=== PATIENT | female | born 1960 | race Caucasian/White ===

== ENCOUNTER → 2021-12-05 | Outpatient (CLI) | payer BC, SELFPAY ==
--- NOTE | 2021-12-05 14:25 | VDLE_ITS ---
Reason For Study: RLE PAIN RIGHT GSV is normal. CFV is compressible, spontaneous, phasic, competent and demonstrates normal augmentation. FV is compressible, spontaneous, phasic, competent and demonstrates normal augmentation. POP V is compressible, spontaneous, phasic, competent and demonstrates normal augmentation. T/P Trunk is compressible. PTV is compressible. RT PerV is compressible. Procedure This is a venous duplex using B-mode, color flow and spectral Doppler. Exam performed in department. The exam was diagnostic. A preliminary report was called and/or faxed to Dr. López @ [phone] @ 2:45 pm. VL/Venous Duplex US, Unilateral Interpretation Summary Deep veins of the right lower extremity are patent and compressible segmentally . There is no evidence of right lower extremity deep vein thrombosis. Valvular competence rosanne ears intact within the proximal deep venous system on the right . The right great saphenous vein a ppears patent and compressible segmentally. Ordering Physician: Shy Ernst Referring Physician: Bret López Performed By: Lizz Medina, CASSIE, RVT
== END | disposition home or self-care (01) ==
LOC: CVS 14:23
PROVIDERS: PCP Family Medicine; Referring Provider Nurse Practitioner Family; Visit Provider Nurse Practitioner Family
DX: M79.604 Pain in right leg (principal)
CPT/HCPCS: 93971

== ENCOUNTER 2024-02-06 16:27 | Emergency (ER) | payer SELFPAY ==
[2024-02-06 16:28] VITALS: BP 166/91; PULSE 91; RESP 18; TEMP 37; O2SAT 100; BMI 33.0
--- NOTE | 2024-02-06 16:50 | RAD_ITS ---
STUDY: X-RAY CHEST REASON FOR EXAM: Female, 63 years old. cough TECHNIQUE: Single frontal view of the chest. COMPARISON: None. FINDINGS: Lungs are hyperaerated. The lungs are clear and expanded. There is no demonstrated pleural abnormality. Normal size heart. Normal mediastinum and raad. Normal visualized pulmonary arteries. Normal visualized aortic arch and descending thoracic aorta. Normal visualized thoracic spine. Normal visualized ribs, clavicles, and shoulders. There is no demonstrated abnormality of the visualized soft tissue structures of the upper abdomen. RAD/Chest PA and Lateral IMPRESSION: COPD Electronically Signed: Lucas Streeter MD at 17:15 EDT ,
--- NOTE | 2024-02-06 16:53 | EDS_ITS ---
HPI History of Present Illness Chief Complaint: Cough Narrative Narrative: Chief complaint and HPI: Cough. 63-year-old female presents for evaluation of cough, sinus congestion, sore throat for the past week and a half. Patient is a tobacco abuser. No history of asthma or COPD. Patient denies any fever, chills, abdominal pain, nausea, vomiting, diarrhea. Patient states she has had little sleep secondary to her cough. Review of systems: See HPI Medications: As listed on the chart Allergies: As listed on the chart PFSH: Per chart Vital signs: As listed on the chart. Reviewed. Physical exam: Gen: A&O x3, NAD Head: Normocephalic, atraumatic Eyes: No sclera icterus, conjunctiva clear, PERRL, EOMI ENT: TMs clear BL, moist mucous membranes, posterior oropharynx unremarkable, uvula midline, tonsils not enlarged, no tonsillar exudates, sinus tenderness to palpation Neck: Trachea midline, No JVD, Full ROM, No meningismus CV: RRR, no murmurs, no peripheral edema Resp: Lungs CTA BL, no w/r/c GI: Abd soft, non-distended, non-tender, no r/r/g Musc: Full ROM, no deformity Skin: Warm, dry, no rash Neuro: Alert, oriented, grossly intact, sensation intact Psych: Cooperative, appropriate mood and affect [facility] Medical History (Updated 02/06/24 @ 17:[address] Ilia Ladd, DO) Hyperlipemia HTN (hypertension) Diabetes type 2, controlled Home Medications ?Medication ?Instructions ?Recorded ?Last Taken ?Type amoxicillin 875 mg-potassium 1 tab PO Q12H 10 days #20 tabs 02/06/24 Unknown Rx clavulanate 125 mg tablet Allergy/AdvReac Type Severity Reaction Status Date / Time acetaminophen (From Percocet) AdvReac Vomiting Verified 02/06/24 16:28 oxycodone (From Percocet) AdvReac Vomiting Verified 02/06/24 16:28 Penicillins AdvReac Other Verified 02/06/24 16:28 Social History Smoking Status: Current every day smoker tobacco type: cigarettes EXAM Physical Exam Const Vital Signs: 02/06/24 16:28 02/06/24 17:06 Temperature 98.6 F Temperature Source Oral Pulse Rate 91 Respiratory Rate 18 Respiratory Effort Normal Non-Labored Respiratory Depth Normal Blood Pressure 166/91 H Blood Pressure Mean 116 Pulse Ox 100 Oxygen Delivery Method Room Air MDM MDM MDM Narrative Medical decision making narrative: 63-year-old female presents for evaluation of cough, sinus congestion, sore throat. Symptoms have been ongoing for a week and a half. Differential diagnosis includes but is not limited to sinusitis, pneumonia, bronchitis. Given patient's physical exam, I suspect sinusitis. However given symptoms have been ongoing for a week and a half we will get chest x-ray to rule out pneumonia. Chest x-ray negative for pneumonia. Patient's symptoms are likely secondary to acute sinusitis. Patient will placed on a 10-day course of Augmentin. She was told to follow-up with her PCP. Return precautions explained. She confirmed understand of the plan. Diagnostic: Interpreted by me/EM physician: Chest x-ray without pneumonia, effusion, cardiomegaly, pneumothorax Impression: 1. Acute sinusitis 2. Cough Radiography Diagnostic Testing: Clinical Impression(s) from Imaging Studies Chest X-Ray 02/06/24 16:50 IMPRESSION: COPD Electronically Signed: Lucas Streeter MD at 17:15 EDT Reading Location ID and State: [facility] / [place] Tel , Service support , Discharge Plan Triage Chief Complaint: Cough ED Provider: Ilia Ladd Dx/Rx/DC Orders Clinical Impression: Sinusitis, acute Instructions: Causes of Sinusitis, ED Sinusitis (Antibiotic Treatment) Prescriptions: New amoxicillin-pot clavulanate 875-125 mg tablet 1 tab PO Q12H 10 Days Qty: 20 0RF Primary Care Provider: Bret López Referrals: Bret López MD [Primary Care Provider] - 3-5 Days Print Language: Chilean Disposition Disposition: Home, Self Care
[2024-02-06 18:06] VITALS: BP 124/77; PULSE 74; RESP 18; TEMP 37; O2SAT 100
== END 2024-02-06 18:07 | disposition home or self-care (01) ==
PROVIDERS: Emergency Provider Surgery; PCP Family Medicine; Visit Provider Surgery
DX: J01.90 Acute sinusitis, unspecified (principal); E11.9 Type 2 diabetes mellitus without complications; J02.9 Acute pharyngitis, unspecified; I10 Essential (primary) hypertension; E78.5 Hyperlipidemia, unspecified; F17.210 Nicotine dependence, cigarettes, uncomplicated
CPT/HCPCS: 71046; 99282

== ENCOUNTER 2024-03-30 15:22 | Emergency (ER) | payer SELFPAY ==
[2024-03-30 15:24] VITALS: BP 169/74; PULSE 88; RESP 16; TEMP 36.3; O2SAT 97; BMI 33.8
--- NOTE | 2024-03-30 15:32 | EX.ED.UPPERE ---
HPI History of Present Illness Chief Complaint: Upper Extremity Injury [facility] Medical History (Updated 03/30/24 @ 15:[address] Terell Padilla, DO) Hyperlipemia HTN (hypertension) Diabetes type 2, controlled Home Medications ?Medication ?Instructions ?Recorded ?Last Taken ?Type amoxicillin 875 mg-potassium 1 tab PO Q12H 10 days #20 tabs 02/06/24 Unknown Rx clavulanate 125 mg tablet fluconazole 150 mg tablet 150 mg PO DAILY 2 days #2 tabs 03/30/24 Unknown Rx sulfamethoxazole 800 1 tab PO BID 7 days #14 tabs 03/30/24 Unknown Rx mg-trimethoprim 160 mg tablet (Bactrim DS) Allergy/AdvReac Type Severity Reaction Status Date / Time acetaminophen (From Percocet) AdvReac Vomiting Verified 02/06/24 16:28 oxycodone (From Percocet) AdvReac Vomiting Verified 02/06/24 16:28 Penicillins AdvReac Other Verified 02/06/24 16:28 Social History Smoking Status: Current every day smoker tobacco type: cigarettes EXAM Physical Exam Const Vital Signs: 03/30/24 15:24 Temperature 97.3 F L Temperature Source Temporal Pulse Rate 88 Respiratory Rate 16 Blood Pressure 169/74 H Blood Pressure Mean 105 Pulse Ox 97 MDM [facility] Narrative Medical decision making narrative: HISTORY OF PRESENT ILLNESS: 63-year-old female [id number] presents with right middle finger pain. States finger is bruised. She denies any injury. She further states has been ongoing for last few days. States he tried to poke with a needle to drain it. States he has diabetes with concerns for. Denies any difficulty with extending the finger. The fingers are held in flexion. REVIEW OF SYSTEMS: Pertinent positives: Finger pain Pertinent negatives: Vomiting, fever PHYSICAL EXAM: Nursing triage notes reviewed, Vital signs reviewed Constitutional: please see mdm Extremities: No edema, right third digit neutral, no pain over flexor tendon sheath, no pain with passive extension, swelling and redness noted on the medial nail fold just adjacent to the nailbed, finger has warmth. Neuro: Intact 5/5 strength with ok sign (median), intact finger abduction (ulnar) intact wrist extension (radial n). Intact sensation in the radial, ulnar, and median nerve distributions. Skin: Erythema noted to dista third digit of the right hand MEDICAL DECISION MAKING: Chief Complaint: Finger pain External records reviewed: No recent ED visits Factors affecting care: none Social determinants of health: none History obtained from others: none Consults: none MDM Narrative: The patient was hemodynamically stable, afebrile and nontoxic-appearing. Exam consistent with paronychia. I considered the following differential diagnosis: Finger fracture, dislocation, paronychia, felon, flexor tenosynovitis there is no clinical exam evidence to suggest. There is no trauma to suggest fracture or dislocation. I&D performed with assistance of a digital block with a small amount of mostly bloody drainage. No real purulence noted. Area was cleansed. Oral antibiotics given. Strict return precautions were discussed. Procedure: Incision and Drainage The procedure was performed by myself. Location: Right third digit Risks and benefits: Risks, benefits, and alternatives were discussed. Questions were sought and answered, and verbal consent provided for the procedure. Anesthesia: Digital block with 1% lidocaine without epinephrine Procedure Description: I placed the bevel of an 18-gauge needle into the nailfold with return of mostly bloody discharge approximately 2 cc. Held pressure and bleeding stopped. The patient tolerated the procedure well without complications. The patient and/or family, caregivers express understanding. The patient and/or family, caregivers agrees with the plan. Shared decision making: I will have a discussion with the patient and or visitors regarding risk/benefits of further testing or admission. They will be made aware of of the risk/benefits inherent in this decision they will be given the opportunity to voice understanding. Total critical care time today provided was at least 0 minutes. This excludes separately billable procedures. Critical care time (if documented) is secondary to the patient having high probability of clinically significant/life threatening deterioration in the patient's condition which required my urgent intervention. Impression: 1. Paronychia 2. History of type II diabetes Dispo: Discharge This note was generated with [employer] dictation software. It may contain incorrect words, spelling, and punctuation that were not noted in review of the chart prior to signing. Discharge Plan Triage Chief Complaint: Upper Extremity Injury ED Provider: Terell Padilla Dx/Rx/DC Orders Clinical Impression: Paronychia of finger Instructions: ED Paronychia of the Finger or Toe Prescriptions: New sulfamethoxazole-trimethoprim [Bactrim DS] 800-160 mg tablet 1 tab PO BID 7 Days Qty: 14 0RF fluconazole 150 mg tablet 150 mg PO DAILY 2 Days Qty: 2 0RF No Action amoxicillin-pot clavulanate 875-125 mg tablet 1 tab PO Q12H 10 Days Qty: 20 0RF Primary Care Provider: Bret López Referrals: Bret López MD [Primary Care Provider] - Activity Restrictions/Additional Instructions: Thank you for trusting us with your care today! Your clinical exam is most consistent with paronychia. This is an infection next your nailbed. It is treated with antibiotics and incision and drainage. Please take antibiotics until course complete. Please take Tylenol (2 pills, 650 mg), ibuprofen (2 pills, 400 mg) every 6 hours as needed for pain and fever control. Please return to the emergency department if your symptoms change or worsen. Specifically develop vomiting, increasing pain, swelling, if you notice your finger is in a flexed position and is painful to extend your finger completely. Please follow with your primary care physician for further outpatient evaluation and management. Print Language: Setswana Disposition Disposition: Home, Self Care Discharge Date/Time: 03/30/24 16:12
[2024-03-30] MEDS: Smz/Tmp Ds Tablet 1 TABLET PO (15:46)
[2024-03-30] MEDS: Lidocaine 1% (20 ml mdv) 20 ML Vial 5 ML INFILT (15:47)
[2024-03-30 16:11] VITALS: BP 169/74; PULSE 88; RESP 16; TEMP 36.3; O2SAT 97
== END 2024-03-30 16:12 | disposition home or self-care (01) ==
LOC: ED 15:54
PROVIDERS: Emergency Provider Emergency Medicine; PCP Family Medicine; Visit Provider Emergency Medicine
DX: L03.011 Cellulitis of right finger (principal); E11.9 Type 2 diabetes mellitus without complications; Z79.4 Long term (current) use of insulin; I10 Essential (primary) hypertension; E78.5 Hyperlipidemia, unspecified; F17.210 Nicotine dependence, cigarettes, uncomplicated; Z79.899 Other long term (current) drug therapy
CPT/HCPCS: 10060; 99282

== ENCOUNTER 2024-04-04 12:11 | Inpatient (IN) | payer SELFPAY ==
[2024-04-04] VITALS (14 sets, daily range): BP systolic 88–139; BP diastolic 54–80; PULSE 83–118; RESP 16–23; TEMP 37–39.2; O2SAT 93–100; BMI 33.9; BMI 34.6
--- NOTE | 2024-04-04 12:22 | ED.RN ---
PT'S FAMILY AT BEDSIDE AND DESCRIBES PT HAS HAD A COUPLE FALLS AT HOME FOLLOWING AN INFECTION BEING TREATED WITH ORAL ANTIBIOTICS RIGHT NOW. PT IS A&OX4 WITH AN ELEVATED TEMP ORAL 101.8
--- NOTE | 2024-04-04 12:24 | EKG12_ITS ---
Test Reason : Blood Pressure : */* mmHG Vent. Rate : 108 BPM Atrial Rate : 108 BPM P-R Int : 164 ms QRS Dur : 92 ms QT Int : 308 ms P-R-T Axes : 63 -57 64 degrees QTcB Int : 412 ms Sinus tachycardia Left axis deviation Pulmonary disease pattern Abnormal ECG Confirmed by CHEN CASTELLANOS, CATIE ([id number]), pictures editor MARY SHEPARD ([id number]) on 04/09/2024 1:32:17 P M Referred By: Confirmed By: CATIE SIDDIQUI MD
--- NOTE | 2024-04-04 12:28 | EDS_ITS ---
HPI <TARYN Hedrick - Last Filed: 04/04/24 15:51> History of Present Illness Chief Complaint: Confusion Narrative Narrative: Patient is a 63-year-old female with history of hypertension hyperlipidemia, diabetes who presents to the emergency department fever, chills, worsening infection to her right middle finger. Patient was seen here on March 30, 2024, diagnosed with paronychia. Per the patient's daughter who she lives with, the patient was not acting herself today, the patient was weak, having multiple falls, 1 having been in the shower. Denies any head or neck injury. The patient then states that she knew she needed to drive to the ER however she was dizzy and the daughter stopped her and drove her here. Patient does have a fever here, she is tachycardic. Patient dates she does have a cough, as well as worsening pain to her right middle finger. She is currently on Bactrim however is unclear when she specifically started it. How she did not started on the eighth. PFS <TARYN Hedrick - Last Filed: 04/04/24 15:51> [facility] Medical History (Updated 04/04/24 @ 16:[address] Bartolo Pearl MD) Hyperlipemia HTN (hypertension) Diabetes type 2, controlled Home Medications ?Medication ?Instructions ?Recorded ?Last Taken ?Type sulfamethoxazole 800 1 tab PO BID 7 days #14 tabs 03/30/24 Unknown Rx mg-trimethoprim 160 mg tablet (Bactrim DS) amitriptyline 10 mg tablet 10 mg PO QHS 04/04/24 Unknown History gabapentin 600 mg tablet 600 mg PO 4X/DAY 04/04/24 Unknown History metformin 500 mg tablet 1,000 mg PO BID 04/04/24 Unknown History rosuvastatin 20 mg tablet 20 mg PO QHS 04/04/24 Unknown History Allergy/AdvReac Type Severity Reaction Status Date / Time acetaminophen (From Percocet) AdvReac Vomiting Verified 04/04/24 12:24 oxycodone (From Percocet) AdvReac Vomiting Verified 04/04/24 12:24 Penicillins AdvReac Other Verified 04/04/24 12:24 Social History Smoking Status: Current every day smoker tobacco type: cigarettes ROS <TARYN Hedrick - Last Filed: 04/04/24 15:51> ROS ED ROS Narrative Constitutional: Negative for weight loss, weakness. Positive fever and chills Eyes: Negative for vision loss, vision change, double vision ENT: Negative for any sore throat, ear pain, congestion Cardiovascular: Negative for any chest pain, tightness, palpitations Respiratory: Negative for any sputum production, hemoptysis, dyspnea, dyspnea on exertion, orthopnea. Positive for cough Gastrointestinal: Negative for any abdominal pain, nausea, vomiting, diarrhea, constipation, blood in stool, blood in vomit : Negative for any urinary frequency, dysuria, retention, blood in urine Muscle skeletal: Negative for any neck pain, back pain. Positive pain to the right middle finger Neurological: Negative for any headache, syncope, dizziness Skin: Negative for any rashes, itching, abrasions, lacerations. Positive for infection to the right middle finger Psychiatric: Negative for any depression, anxiety, stress, suicidal ideation, homicidal ideation Hematologic: Negative for any excessive bruising, easy bleeding EXAM <TARYN Hedrick - Last Filed: 04/04/24 15:51> Physical Exam Narrative Exam Narrative: Vital signs reviewed. Patient is tachycardic, fever 101.9. HEET: Head normocephalic atraumatic, TMs clear bilaterally. Posterior pharynx is clear, moist mucous membranes. Nares clear bilaterally. Neck: Supple with no lymphadenopathy or tenderness. No signs of meningismus. Cardiac: Regular rate and rhythm no murmurs gallops or rubs, equal peripheral pulses bilaterally. Respiratory: Patient has slight expiratory wheezes, diminished lung sounds of both lower lobes. No chest tenderness. Abdomen: Soft, nontender, nondistended. No abdominal bruit or pulsatile masses. No hepatosplenomegaly Extremities: Patient does have some erythema, abscess formation the distal tip of the right middle finger. This is consistent with worsening paronychia full range of motion. Active full range of motion of all extremities. Neuro: Cranial nerves II through XII intact, no focal neurological deficits. Skin: Clean dry and intact with no rash, purpura, petechiae, vesicles or pustules. Backs/flank: No CVA tenderness, no midline spinal tenderness, no deformity. Psych: Normal mood and affect. No SI, HI or acute psychosis. Const Vital Signs: 04/04/24 12:11 04/04/24 12:15 04/04/24 12:24 Temperature 101.9 F H 101.9 F H Temperature Source Oral Oral Pulse Rate 118 H 118 H Respiratory Rate 18 18 Blood Pressure 139/80 H 139/80 H Blood Pressure Mean 99 99 Pulse Ox 99 99 100 Oxygen Delivery Method Room Air Room Air Room Air 04/04/24 13:15 04/04/24 13:55 04/04/24 14:00 Temperature 101.9 F H 102.5 F H 102.5 F H Temperature Source Oral Oral Oral Pulse Rate 99 95 Respiratory Rate 17 23 H Blood Pressure 121/54 H 102/56 L Blood Pressure Mean 76 71 Pulse Ox 93 96 Oxygen Delivery Method Room Air Room Air 04/04/24 15:00 04/04/24 15:53 Temperature 99 F Temperature Source Oral Pulse Rate 86 83 Respiratory Rate 19 H 17 Blood Pressure 88/54 L 109/60 Blood Pressure Mean 65 76 Pulse Ox 97 97 Oxygen Delivery Method Room Air Room Air Positive well nourished and well developed General Appearance ED: well developed <Dr. Bartolo Pearl MD - Last Filed: 04/04/24 22:13> Physical Exam Const Vital Signs: 04/04/24 12:11 04/04/24 12:15 04/04/24 12:24 Temperature 101.9 F H 101.9 F H Temperature Source Oral Oral Pulse Rate 118 H 118 H Respiratory Rate 18 18 Blood Pressure 139/80 H 139/80 H Blood Pressure Mean 99 99 Pulse Ox 99 99 100 Oxygen Delivery Method Room Air Room Air Room Air 04/04/24 13:15 04/04/24 13:55 04/04/24 14:00 Temperature 101.9 F H 102.5 F H 102.5 F H Temperature Source Oral Oral Oral Pulse Rate 99 95 Respiratory Rate 17 23 H Blood Pressure 121/54 H 102/56 L Blood Pressure Mean 76 71 Pulse Ox 93 96 Oxygen Delivery Method Room Air Room Air 04/04/24 15:00 04/04/24 15:53 Temperature 99 F Temperature Source Oral Pulse Rate 86 83 Respiratory Rate 19 H 17 Blood Pressure 88/54 L 109/60 Blood Pressure Mean 65 76 Pulse Ox 97 97 Oxygen Delivery Method Room Air Room Air Sepsis Attestation <Dr. Bartolo Pearl MD - Last Filed: 04/04/24 22:13> Sepsis Alert: Yes Sepsis Attestation: Agree w/Sepsis Date exam was performed: 04/04/24 Time exam was performed: 15:15 Possible Source of Sepsis: Pulmonary and Skin/soft tissue Sepsis Organ Dysfunction Criteria Present: SBP < 90 mmHg or MAP < 65 mmHg, SBP decrease of more than 40 mmHg, Lactic Acid > 2 mmol/L and New/Unexplained change in mental status Fluid Resuscitation Fluid resuscitation indicated?: Yes Fluid Resuscitation ordered: Lesser volume fluid bolus ordered Amount of fluid ordered: 2,000 Reason for lesser fluid bolus:: BP Responded to a lesser volume Sepsis Note Date exam was performed: 04/04/24 Time exam was performed: 15:55 Sepsis Attestation: Sepsis re-evaluation was performed Response to fluids: Fluid responsive hypotension MDM <TARYN Hedrick - Last Filed: 04/04/24 15:51> [place] Lab Data Labs: Laboratory Results - last 24 hr 04/04/24 04/04/24 04/04/24 12:43 13:30 13:50 WBC 4.2 L RBC 5.04 Hgb 14.8 Hct 43.2 MCV 85.7 MCH 29.4 MCHC 34.3 RDW Std Deviation 39.7 RDW Coeff of Kristi 12.8 Plt Count 160 MPV 11.1 Immature Gran % (Auto) 2.100 H Neut % (Auto) 72.8 H Lymph % (Auto) 12.8 L [place] % (Auto) 10.9 H Eos % (Auto) 0.5 Baso % (Auto) 0.9 Absolute Neuts (auto) 3.1 Absolute Lymphs (auto) 0.54 L Nucleated RBC % 0 ESR 10 PT Cancelled 13.2 INR Cancelled 1.0 APTT Cancelled 26.4 Sodium 129 L Potassium 5.2 H Chloride 99 Carbon Dioxide 22.0 Anion Gap 8 BUN 18 Creatinine 1.37 H Estim Creat Clear Calc 47.87 Est GFR (MDRD) Af Amer 50 L Est GFR (MDRD) Non-Af 42 L BUN/Creatinine Ratio 13.1 Glucose 446 H Lactic Acid 2.4 H* Calcium 9.6 Total Bilirubin 0.40 AST 16 ALT 28 Alkaline Phosphatase 144 H C-React Prot Ext Range 12.90 H Total Protein 7.4 Albumin 3.9 Globulin 3.5 Albumin/Globulin Ratio 1.1 Urine Color Yellow Urine Clarity Sl. Cloudy Urine pH 5.0 Ur Specific [place] 1.015 Urine Protein 30 H Urine Glucose (UA) 1000 H Urine Ketones Negative Urine Occult Blood 25 H Urine Nitrite Negative Urine Bilirubin Negative Urine Urobilinogen Normal Ur Leukocyte Esterase Negative Urine RBC 0-5 SEEN Urine WBC 0 SEEN Ur Squamous Epith Cells 0-5 SEEN Urine Bacteria 0 SEEN Urine Mucus 0 SEEN Radiography Diagnostic Testing: Clinical Impression(s) from Imaging Studies Chest X-Ray 04/04/24 12:55 IMPRESSION: Hyperinflation. The lungs are clear. Electronically Signed: Fox Blank MD at 13:09 EST , Finger X-Ray 04/04/24 12:55 IMPRESSION: Diffuse soft tissue swelling. Electronically Signed: Fox Blank MD at 13:08 EST , Treatment and Re-Evaluation :: Differential diagnosis includes however is not limited to: Osteomyelitis, septicemia, failure outpatient therapy right middle finger paronychia, community-acquired pneumonia, COVID-19 influenza RSV, other viral-like illness. Patient does have tachycardia, fever here, patient will receive a septic workup. Presenting to the emergency department for complaints of fever, chills, altered mental status, weakness and falls over the last 24 hours. Patient will receive x-rays of the right middle finger, chest x-ray. Patient will receive IV fluids, Tylenol, blood cultures x 2. All radiologic examinations were read, reviewed by the emergency department attending. From these reads, a plan of care will be put in place. Patient's laboratory values shows a leukopenia with a white blood cell count 4.2, PT/INR within normal limits. Patient's sodium 129 with potassium 5.2, slightly elevated. Creatinine 1.37, glucose 4-46 with a lactic acid 2.4. Alkaline phosphatase 144 C-reactive protein slightly elevated 12.9. Sed rate was negative. Patient's chest x-ray was negative for any acute process. Urinalysis showed no infection. Patient was positive for COVID-19, does explain multiple symptoms. Patient be given 2 L normal saline. Patient did respond well to Tylenol and ibuprofen. Patient is currently getting the second liter of fluid, I did repeat the patient's blood pressure was 90/54. Patient is mentating well. She will continue to get the IV fluids, we will reevaluate after the second liter. After the second liter, the patient did have some improvement in her blood pressure which is now 109/54. Secondary the patient's hypotension, COVID-19, paronychia, metabolic cephalopathy, dehydration, I do believe patient would benefit from admission. I spoke with admitting physician. Patient admitted to observation on [facility]. Patient is agreeable with this plan. All questions answered, patient stable for discharge. <Dr. Bartolo Pearl MD - Last Filed: 04/04/24 22:13> MDM MDM Narrative Medical decision making narrative: I have personally performed a face to face assessment of the patient and have reviewed the MERLINE Note. I performed a substantive portion of the visit including all aspects of the following. My vidales findings include: History is recent paronychia spontaneously according to patient, seen last week. Started antibiotics 3 days ago. This morning, family disoriented and fever up to 103. She has had a cough recently. She does have chronic cough it is a little worse she denies dyspnea. Contact with walking pneumonia and COVID in her building. Exam is no acute distress. Able to follow commands. A little confused only detectable with conversation but oriented x 3. Right long finger mildly tender paronychia that is open, small amount of purulence is expressible from the nail fold which was sterilized and then expressed freshly for culture. Normal nonfocal peripheral neurologic exam. Lungs clear. Occasional cough. No distress. Abdomen soft nontender nondistended no other wounds or signs of cellulitis going up the finger. Medical Decison Making septic workup and possible admission. This paronychia does not appear to be that bad and unlikely causing her high fevers and disorientation/encephalopathy. The transient hypotension therefore more likely related to dehydration rather than her COVID infection and paronychia. 1 view chest x-ray on my interpretation is normal, 3 view finger x-ray on my interpretation shows no acute bony abnormality. Other additions or changes: [None] Lab Data Labs: Laboratory Results - last 24 hr 04/04/24 04/04/24 04/04/24 12:43 13:30 13:50 WBC 4.2 L RBC 5.04 Hgb 14.8 Hct 43.2 MCV 85.7 MCH 29.4 MCHC 34.3 RDW Std Deviation 39.7 RDW Coeff of Kristi 12.8 Plt Count 160 MPV 11.1 Immature Gran % (Auto) 2.100 H Neut % (Auto) 72.8 H Lymph % (Auto) 12.8 L [place] % (Auto) 10.9 H Eos % (Auto) 0.5 Baso % (Auto) 0.9 Absolute Neuts (auto) 3.1 Absolute Lymphs (auto) 0.54 L Nucleated RBC % 0 ESR 10 PT Cancelled 13.2 INR Cancelled 1.0 APTT Cancelled 26.4 Sodium 129 L Potassium 5.2 H Chloride 99 Carbon Dioxide 22.0 Anion Gap 8 BUN 18 Creatinine 1.37 H Estim Creat Clear Calc 47.87 Est GFR (MDRD) Af Amer 50 L Est GFR (MDRD) Non-Af 42 L BUN/Creatinine Ratio 13.1 Glucose 446 H Lactic Acid 2.4 H* Calcium 9.6 Total Bilirubin 0.40 AST 16 ALT 28 Alkaline Phosphatase 144 H C-React Prot Ext Range 12.90 H Total Protein 7.4 Albumin 3.9 Globulin 3.5 Albumin/Globulin Ratio 1.1 Urine Color Yellow Urine Clarity Sl. Cloudy Urine pH 5.0 Ur Specific [place] 1.015 Urine Protein 30 H Urine Glucose (UA) 1000 H Urine Ketones Negative Urine Occult Blood 25 H Urine Nitrite Negative Urine Bilirubin Negative Urine Urobilinogen Normal Ur Leukocyte Esterase Negative Urine RBC 0-5 SEEN Urine WBC 0 SEEN Ur Squamous Epith Cells 0-5 SEEN Urine Bacteria 0 SEEN Urine Mucus 0 SEEN Radiography Diagnostic Testing: Clinical Impression(s) from Imaging Studies Chest X-Ray 04/04/24 12:55 IMPRESSION: Hyperinflation. The lungs are clear. Electronically Signed: Fox Blank MD at 13:09 EST , Finger X-Ray 04/04/24 12:55 IMPRESSION: Diffuse soft tissue swelling. Electronically Signed: Fox Blank MD at 13:08 EST , Rhythm Strip Rhythm Strip: Sinus Tach Rate: 108 Ectopy: None EKG Initial EKG: Attestation: I personally reviewed and interpreted this EKG as follows: Interpretation: No Acute Injury Pattern, Sinus Tachycardia and LAFB Comments: Narrow QRS. Normal QTc. No AV block. Management Discussion w/another healthcare provider: Hospitalist <Dr. Bartolo Pearl MD - Last Filed: 04/04/24 22:13> Critical Care Time Critical Care Time: Yes Critical care time (excluding procedures): 30-74 minutes (33 min), Including time spent:, Discussing w/Patient &/or Family/Mortar Maker, Discussing w/Consultants, Arranging Admission or Transfer and Performing Direct Patient Care at Bedside Discharge Plan Dx/Rx/DC Orders Clinical Impression: Acute metabolic encephalopathy, Paronychia of finger, COVID-19, Weakness, Acute dehydration, Transient hypotension Disposition Disposition: [facility] Care [facility] Discharge Date/Time: 04/04/24 18:34
[2024-04-04] MEDS: Ondansetron 4 MG/2 ML Vial IV (12:45)
[2024-04-04] MEDS: Acetaminophen 500 MG Tablet 1000 MG PO (12:45)
[2024-04-04] MEDS: 0.9% Normal Saline (1000mL) 1,000 ML 999 ML IV ×3 (12:45→16:20)
--- NOTE | 2024-04-04 12:55 | RAD_ITS ---
STUDY: X-RAY CHEST REASON FOR EXAM: Female, 63 years old. Cough TECHNIQUE: Single AP portable view of the chest. COMPARISON: Comparison is made with prior chest radiograph dated February 06, 2024. FINDINGS: EKG electrodes are seen. Hyperinflation. The lungs are clear. There is no demonstrated pleural abnormality. Normal size heart. Normal mediastinum and raad. Normal visualized pulmonary arteries. There is atherosclerotic calcification of the aortic arch with tortuosity. There are diffuse degenerative changes of the visualized thoracic spine. Normal visualized ribs, clavicles, and shoulders. There is no demonstrated abnormality of the visualized soft tissue structures of the upper abdomen. RAD/Chest 1 View (Portable) IMPRESSION: Hyperinflation. The lungs are clear. Electronically Signed: Fox Blank MD at 13:09 EST ,
--- NOTE | 2024-04-04 12:55 | RAD_ITS ---
STUDY: X-RAY - RIGHT HAND, ATTENTION THIRD FINGER REASON FOR EXAM: Female, 63 years old. Finger infection 3rd digit TECHNIQUE: 3 view(s) of the finger were obtained. COMPARISON: None. FINDINGS: Normal metacarpal head. Normal metacarpophalangeal joint. Normal proximal phalanx. Normal middle phalanx. Normal distal phalanx. Normal proximal interphalangeal joint. Normal distal interphalangeal joint. Diffuse soft tissue swelling. RAD/Finger(s) Min 2 Views IMPRESSION: Diffuse soft tissue swelling. Electronically Signed: Fox Blank MD at 13:08 EST ,
[2024-04-04 13:25] LABS: ALB/GLOB Ratio 1.1 RATIO (0.9-2.4); AST(SGOT) 16 U/L (15-37); Alanine Aminotransfer ALT/SGPT 28 U/L (13-56); Albumin, Serum 3.9 g/dL (3.2-5.0); Alkaline Phosphatase 144 U/L (45-117); Anion Gap 8 (5-15); BUN 18 mg/dL (7-18); BUN/Creat Ratio 13.1 RATIO (10-20); Calcium,Total 9.6 mg/dL (8.5-10.1); Chloride 99 mmol/L (98-107); Creatinine, Serum 1.37 mg/dL (0.55-1.02); EST Glomerular Filtration Rate 42 mL/min (>60); Est Glom Filt Rate - Afr Amer 50 mL/min (>60); Estimated Creatinine Clearance 47.87 ml/min; Globulin 3.5 g/dL (2.2-4.2); Glucose 446 mg/dL (74-106); Potassium 5.2 mmol/L (3.5-5.1); Protein, Total 7.4 g/dL (6.4-8.2); Sodium Level 129 mmol/L (136-145)
[2024-04-04 13:36] LABS: Erythrocyte Sedimentation Rate 10 mm/hr (0-30)
[2024-04-04 13:39] LABS: Lactic Acid 2.4 mmol/L (0.4-1.9)
[2024-04-04 13:40] LABS: Absolute Lymphocyte Count 0.54 X10^3/uL (0.83-4.51); Absolute Neutrophil Count 3.1 X10^3/uL (2.0-7.7); Basophil# 0.04 X10^3/uL; Basophil% 0.9 % (0-1); Eosinophil# 0.02 X10^3/uL; Eosinophils% 0.5 % (0-5); Hematocrit 43.2 % (37-47); Hemoglobin 14.8 g/dL (12.0-15.0); Lymphocyte # 0.54 X10^3/ul (0.83-4.51); Lymphocyte % 12.8 % (19-41); Mean Corp Hgb Conc 34.3 g/dL (32-36); Mean Corpuscular Hgb 29.4 pg (27.0-32.0); Mean Corpuscular Volume 85.7 fL (81-99); Mean Platelet Vol. 11.1 fl (6.2-12.0); Monocyte# 0.46 X10^3/uL; Monocyte% 10.9 % (0-10); NRBC Flagged by Analyzer 0 % (0-5); Neutrophil # 3.08 X10^3/uL (2.7-7.7); Neutrophil % 72.8 % (47-70); POSITIVE DIFFERENTIAL YES; Platelet Count 160 K/mm3 (150-450); RBC Distribution Width CV 12.8 % (11.6-14.6); RBC Distribution Width SD 39.7 fl (35.1-43.9); Red Blood Count 5.04 M/mm3 (4.2-5.4); White Blood Count 4.2 K/mm3 (4.4-11.0)
[2024-04-04 13:53] LABS: Prothrombin Time (Protime)PT. 13.2 SECONDS (11.7-14.9)
[2024-04-04 13:54] LABS: Partial Thromboplast Time 26.4 Seconds (24.1-36.2)
[2024-04-04 13:58] LABS: Bacteria 0 SEEN /hpf (None Seen); Mucous, Urine 0 SEEN /hpf (<or=2+); White Blood Cells 0 SEEN /hpf (0-5)
[2024-04-04] MEDS: Ibuprofen 600 MG Tablet PO (14:11)
[2024-04-04 14:31] LABS: Color, Urine Yellow (Yellow); Glucose, Dipstick 1000 mg/dl (Normal); Ketone-Dipstick Negative (Negative); Leukocyte Esterase-Dipstick Negative /ul (Negative); Nitrite-Dipstick Negative (Negative); Occult Blood-Urine 25 /ul (Negative); Protein-Dipstick 30 mg/dl (Negative); Specific Gravity, Urine 1.015 (1.002-1.030); Urine Bilirubin Dipstick Negative (Negative); Urine Clarity Sl. Cloudy (Clear); Urine Urobilinogen Normal (Normal)
[2024-04-04 14:38] LABS: Squamous Epithelial Cells - UA 0-5 SEEN /hpf (5-10)
[2024-04-04 14:39] LABS: Red Blood Cells-Urine 0-5 SEEN /hpf (0-5)
--- NOTE | 2024-04-04 16:36 | PCM.HP.STD ---
HPI - General General Date of Admission: 04/04/24 Date of Service: 04/04/24 Chief Complaint: Chills, weakness, confusion HPI Narrative NORTH CEE, is a 63 F who presents to the emergency room at [facility] with complaints of weakness, chills, and confusion at home over the last 24 hours. Patient states that several of her family members are sick with respiratory illnesses at home. Patient was seen in the ER here on 03/30/2024 and given antibiotics for paronychia of her right middle finger. On examination, patient did not appear to me confused, she answers questions appropriately, she said she has been feeling tired and weak since yesterday. Patient denies any cough, she denied any shortness of breath. Workup in the emergency room included labs which showed a leukopenia of 4.2 on her CBC, chemistry profile was remarkable for sodium of 129, potassium of 5.2, creatinine of 1.37, and a glucose of 446. Chest x-ray showed hyperinflation without infiltrate, x-ray of the right third finger showed diffuse soft tissue swelling. On examination of the right third finger, there appeared to be some redness but this was not severe and I saw no drainage from the area. Patient's COVID PCR was positive. Patient was given fluid boluses in the emergency room due to low blood pressure, patient was asymptomatic with the low blood pressure however. Patient will be placed in observation status for hypotension and volume depletion, blood sugars will be monitored and sliding scale insulin will be used. Due to the fact the patient is not hypoxic and does not have an infiltrate on her chest x-ray, COVID-19 will not be treated. [facility] Medical History (Updated 04/04/24 @ 16:[address] Bartolo Pearl MD) Hyperlipemia HTN (hypertension) Diabetes type 2, controlled Home Medications ?Medication ?Instructions ?Recorded ?Last Taken ?Type amoxicillin 875 mg-potassium 1 tab PO Q12H 10 days #20 tabs 02/06/24 Unknown Rx clavulanate 125 mg tablet fluconazole 150 mg tablet 150 mg PO DAILY 2 days #2 tabs 03/30/24 Unknown Rx sulfamethoxazole 800 1 tab PO BID 7 days #14 tabs 03/30/24 Unknown Rx mg-trimethoprim 160 mg tablet (Bactrim DS) Allergy/AdvReac Type Severity Reaction Status Date / Time acetaminophen (From Percocet) AdvReac Vomiting Verified 04/04/24 12:24 oxycodone (From Percocet) AdvReac Vomiting Verified 04/04/24 12:24 Penicillins AdvReac Other Verified 04/04/24 12:24 Social History Smoking Status: Current every day smoker tobacco type: cigarettes ROS Constitutional Constitutional: Reports chills, fatigue and malaise; Denies anorexia, change in weight, fever(s), night sweats or weakness Eyes Eyes: Denies blurry vision, change in vision, discharge from eye(s) or eye pain Cardiovascular Cardiovascular: Denies chest pain, claudication, dyspnea on exertion, edema, lightheadedness or palpitations Respiratory/Chest Respiratory/Chest: Denies cough, dyspnea, excessive phlegm production, hemoptysis, productive cough, shortness of breath at rest or shortness of breath with exertion Gastrointestinal Gastrointestinal: Denies abdominal pain, constipation, diarrhea, hematemesis, hematochezia, melena, nausea or vomiting Genitourinary Genitourinary: Denies dysuria, hematuria, urinary frequency, urinary hesitancy, urinary incontinence or urinary urgency Musculoskeletal Musculoskeletal: Denies back pain, joint pain, joint stiffness, joint swelling, myalgias or neck pain Neurologic Neurologic: Reports confusion; Denies abnormal gait, abnormal speech, dizziness, focal weakness, headache(s), loss of vision, numbness, other visual disturbances, paresthesias, syncope or tingling Psychiatric Psychiatric: Denies anxiety, cognitive impairment, depression, irritability, mood swings or suicidal ideation Endocrine Endocrinology: Denies change in body appearance, cold intolerance, excessive sweating, heat intolerance, polydipsia or polyuria Hematologic/Lymphatic Hematologic/Lymphatic: Denies none, anemia, easy bleeding, easy bruising or lymphadenopathy Allergic/Immunologic Allergic/Immunologic: Denies rhinitis, urticaria, eczemia or asthma Vital Signs Vital Signs Vital Signs: 04/04/24 12:11 04/04/24 12:15 04/04/24 12:24 Temperature 101.9 F H 101.9 F H Temperature Source Oral Oral Pulse Rate 118 H 118 H Respiratory Rate 18 18 Blood Pressure 139/80 H 139/80 H Blood Pressure Mean 99 99 Pulse Ox 99 99 100 Oxygen Delivery Method Room Air Room Air Room Air 04/04/24 13:15 04/04/24 13:55 04/04/24 14:00 Temperature 101.9 F H 102.5 F H 102.5 F H Temperature Source Oral Oral Oral Pulse Rate 99 95 Respiratory Rate 17 23 H Blood Pressure 121/54 H 102/56 L Blood Pressure Mean 76 71 Pulse Ox 93 96 Oxygen Delivery Method Room Air Room Air 04/04/24 15:00 04/04/24 15:53 Temperature 99 F Temperature Source Oral Pulse Rate 86 83 Respiratory Rate 19 H 17 Blood Pressure 88/54 L 109/60 Blood Pressure Mean 65 76 Pulse Ox 97 97 Oxygen Delivery Method Room Air Room Air Weight Weight: 92.533 kg Body Mass Index (BMI) 33.9 Physical Exam Const alert, oriented x3, no apparent distress and healthy appearing Constitutional Narrative: Patient does not appear unwell General Appearance: cooperative, well kempt and well developed Orientation / Consciousness: awake, oriented to person, oriented to place and oriented to time HEENT normocephalic, head/scalp atraumatic and moist oral mucous membranes Eyes PERRL, EOMs intact bilaterally and conjunctivae normal Neck supple, no JVD, thyroid normal and no carotid bruits General: trachea midline Resp normal respiratory effort, no retractions, no use of accessory muscles and clear to auscultation bilaterally Auscultation: Negative for rales, rhonchi or wheezes Cardio regular rate, regular rhythm, S1 normal heart sound, S2 normal heart sound, no murmurs, no rub and no gallops GI normal to inspection, nondistended, normoactive bowel sounds, soft to palpation, non-tender and non-distended Extremity Extremity Narrative: Patient has some redness of the distal right third finger, she has full capability of flexion and extension in the finger, no drainage is noted from the finger. Skin Skin Narrative: There is redness of the distal right third finger near the border of the fingernail Neuro oriented x3, CN's II-XII intact bilaterally, moves all extremities, no focal motor deficits and no sensory deficits noted Sensorium / Orientation: awake and alert Speech: speech normal Psych affect normal Results Lab / Micro Data 04/04/24 12:43 04/04/24 12:43 Labs: Laboratory Results - last 24 hr 04/04/24 12:43: WBC 4.2 L, RBC 5.04, Hgb 14.8, Hct 43.2, MCV 85.7, MCH 29.4, MCHC 34.3, RDW Std Deviation 39.7, RDW Coeff of Kristi 12.8, Plt Count 160, MPV 11.1, Immature Gran % (Auto) 2.100 H, Neut % (Auto) 72.8 H, Lymph % (Auto) 12.8 L, Wolfe % (Auto) 10.9 H, Eos % (Auto) 0.5, Baso % (Auto) 0.9, Absolute Neuts (auto) 3.1, Absolute Lymphs (auto) 0.54 L, Nucleated RBC % 0, ESR 10, PT Cancelled, INR Cancelled, APTT Cancelled, Sodium 129 L, Potassium 5.2 H, Chloride 99, Carbon Dioxide 22.0, Anion Gap 8, BUN 18, Creatinine 1.37 H, Estim Creat Clear Calc 47.87, Est GFR (MDRD) Af Amer 50 L, Est GFR (MDRD) Non-Af 42 L, BUN/Creatinine Ratio 13.1, Glucose 446 H, Lactic Acid 2.4 H*, Calcium 9.6, Total Bilirubin 0.40, AST 16, ALT 28, Alkaline Phosphatase 144 H, C-React Prot Ext Range 12.90 H, Total Protein 7.4, Albumin 3.9, Globulin 3.5, Albumin/Globulin Ratio 1.1 04/04/24 13:30: PT 13.2, INR 1.0, APTT 26.4 04/04/24 13:50: Urine Color Yellow, Urine Clarity Sl. Cloudy, Urine pH 5.0, Ur Specific [place] 1.015, Urine Protein 30 H, Urine Glucose (UA) 1000 H, Urine Ketones Negative, Urine Occult Blood 25 H, Urine Nitrite Negative, Urine Bilirubin Negative, Urine Urobilinogen Normal, Ur Leukocyte Esterase Negative, Urine RBC 0-5 SEEN, Urine WBC 0 SEEN, Ur Squamous Epith Cells 0-5 SEEN, Urine Bacteria 0 SEEN, Urine Mucus 0 SEEN Micro: Microbiology 04/04/24 12:43 Mucosa - Nose SARS-CoV-2, Influenza & RSV (PCR) - Final SARS-CoV-2 (COVID 19 PCR) Rhythm Strip Rhythm Strip: Sinus Tach Rate: 108 Ectopy: None Imaging Radiology Impression Chest X-Ray 04/04/24 12:55 IMPRESSION: Hyperinflation. The lungs are clear. Electronically Signed: Fox Blank MD at 13:09 EST , Finger X-Ray 04/04/24 12:55 IMPRESSION: Diffuse soft tissue swelling. Electronically Signed: Fox Blank MD at 13:08 EST , Assessment & Plan Assessment/Plan (1) Transient hypotension: PLAN: Plan 1. Acute dehydration secondary to COVID-19 infection with elevated blood sugars-patient will be placed into observation status on MedSurg 3, she will be given IV fluids and labs will be monitored. #2 COVID-19 infection-again patient is not hypoxic and she does not appear unwell, COVID-19 will not be treated #3 uncontrolled type 2 diabetes-patient takes metformin and glipizide at home, her blood sugar in the ER was elevated, blood sugars will be monitored using fingerstick blood sugars and sliding scale insulin will be administered as needed. #4 diabetic neuropathy-patient uses gabapentin, this will be continued #5 paronychia of the right third finger-this does not appear to be severe, patient will be placed on doxycycline orally while she is in the hospital, she was on Bactrim prior to coming into the emergency room today. #6 hyperkalemia-patient has slightly elevated potassium, BMP will be rechecked tomorrow #7 hyponatremia-etiology unclear-BMP will be rechecked tomorrow, patient will be given normal saline Total clinical time spent by myself addressing the patient's medical issues, reviewing all of her data, and collaborating with patient's care team: 55 minutes Charges/Coding Visit Charges Inpatient E&M: 22836 Init Hosp L2
[2024-04-04 16:56] LABS: Reflex Lactate? Y
[2024-04-04 18:03] LABS: Lactic Acid 1.4 mmol/L (0.4-1.9)
[2024-04-04] MEDS: 0.9% Normal Saline (1000mL) 1,000 ML 125 ML IV (19:16)
[2024-04-04 19:50] LABS: Bedside Glucose 392 mg/dL (74-106)
[2024-04-04] MEDS: Heparin Injection (Vial) 5,000 UNIT/ML VIAL 5000 UNIT SC (21:07)
[2024-04-04] MEDS: Doxycycline 100 MG CAPSULE PO (21:07)
[2024-04-04] MEDS: Gabapentin 600 MG Tablet PO (21:07)
[2024-04-04] MEDS: Insulin Lispro 100 UNIT/ML INSULN.PEN SC (21:14)
[2024-04-04] MEDS: Acetaminophen 325 MG Tablet 650 MG PO (22:36)
[2024-04-04 22:39] LABS: Bedside Glucose 431 mg/dL (74-106)
[2024-04-05] VITALS (11 sets, daily range): BP systolic 92–126; BP diastolic 56–84; PULSE 73–93; RESP 16–24; TEMP 36.9–38.1; O2SAT 90–99
[2024-04-05] MEDS: 0.9% Normal Saline (1000mL) 1,000 ML 125 ML IV ×2 (03:12→14:20)
[2024-04-05] MEDS: Insulin Lispro 100 UNIT/ML INSULN.PEN SC ×6 (06:24→22:03)
[2024-04-05] MEDS: Acetaminophen 325 MG Tablet 650 MG PO ×2 (06:36→20:37)
[2024-04-05 06:51] LABS: Bedside Glucose 335 mg/dL (74-106)
[2024-04-05 08:02] LABS: Absolute Lymphocyte Count 0.63 X10^3/uL (0.83-4.51); Absolute Neutrophil Count 1.3 X10^3/uL (2.0-7.7); Basophil# 0.02 X10^3/uL; Basophil% 0.9 % (0-1); Eosinophil# 0.02 X10^3/uL; Eosinophils% 0.9 % (0-5); Hematocrit 34.3 % (37-47); Hemoglobin 11.4 g/dL (12.0-15.0); Lymphocyte # 0.63 X10^3/ul (0.83-4.51); Mean Corp Hgb Conc 33.2 g/dL (32-36); Mean Corpuscular Hgb 29.8 pg (27.0-32.0); Mean Corpuscular Volume 89.6 fL (81-99); Mean Platelet Vol. 10.8 fl (6.2-12.0); Monocyte# 0.32 X10^3/uL; Monocyte% 13.7 % (0-10); NRBC Flagged by Analyzer 0 % (0-5); Neutrophil # 1.32 X10^3/uL (2.7-7.7); Neutrophil % 56.6 % (47-70); Platelet Count 135 K/mm3 (150-450); RBC Distribution Width SD 42.7 fl (35.1-43.9); Red Blood Count 3.83 M/mm3 (4.2-5.4); White Blood Count 2.3 K/mm3 (4.4-11.0)
[2024-04-05 08:44] LABS: Anion Gap 4 (5-15); BUN 13 mg/dL (7-18); BUN/Creat Ratio 13.6 RATIO (10-20); Calcium,Total 7.9 mg/dL (8.5-10.1); Chloride 108 mmol/L (98-107); Creatinine, Serum 0.96 mg/dL (0.55-1.02); EST Glomerular Filtration Rate 63 mL/min (>60); Est Glom Filt Rate - Afr Amer 76 mL/min (>60); Estimated Creatinine Clearance 69.02 ml/min; Glucose 287 mg/dL (74-106); Potassium 4.9 mmol/L (3.5-5.1); Sodium Level 136 mmol/L (136-145)
[2024-04-05 09:16] LABS: Hemoglobin A1c 12.8 % (3.8-5.6)
[2024-04-05 09:17] LABS: Ferritin 148 ng/mL (8-252); Iron 22 ug/dL (50-170); Iron Binding Capacity,Total 227 ug/dL (250-450); PERCENT IRON SATURATION 9.7 % (15.0-55.0)
[2024-04-05] MEDS: Vancomycin HCl 2,000 MG in 0.9% Normal Saline (500mL Bag) 500 ML 250 MG IV (09:39)
[2024-04-05] MEDS: Heparin Injection (Vial) 5,000 UNIT/ML VIAL 5000 UNIT SC ×2 (09:41→22:01)
[2024-04-05] MEDS: Gabapentin 600 MG Tablet PO ×4 (09:41→22:04)
[2024-04-05] MEDS: Insulin Glargine-YFGN 100 UNIT/ML Pen 15 UNIT SC (09:49)
--- NOTE | 2024-04-05 09:51 | CASEMGMT ---
Social Work SW met with pt and introduced self and role of SW. Pt lives at home with her daughter, son in law and son. Pt states that she is independent with all ADLs and IADLs. Pt is able to drive and provide own transportation. Pt does not have health insurance. Pt does receive SSI and works PRN at [employer]. Pt has not applied for Medicaid in the past. SW provided pt with financial assistance resources including [employer], [employer], [employer], Prescription assistance programs and [facility] [place]. Pt states she has a PCP but does not go as she cannot afford it. SW explained to [facility] and encouraged pt to look into this for affordable health care. Email sent to Mamta at [facility] requesting followup for Medicaid application. Pt denies futher needs. QIANA Bryant
--- NOTE | 2024-04-05 10:02 | PCM.RX.CS ---
Consult Antibiotic Management Pharmacy has been consulted to manage selected antibiotic: Vancomycin Type of Intervention Type of Consult: New start Labs Labs: Sodium 136 mmol/L (136-145) 04/05/24 07:40 Potassium 4.9 mmol/L (3.5-5.1) 04/05/24 07:40 Chloride 108 mmol/L (98-107) H 04/05/24 07:40 Carbon Dioxide 24.0 mmol/L (21.0-32.0) 04/05/24 07:40 Anion Gap 4 (5-15) L 04/05/24 07:40 BUN 13 mg/dL (7-18) 04/05/24 07:40 Creatinine 0.96 mg/dL (0.55-1.02) 04/05/24 07:40 Est GFR (MDRD) Af Amer 76 mL/min (>60) 04/05/24 07:40 Est GFR (MDRD) Non-Af 63 mL/min (>60) 04/05/24 07:40 BUN/Creatinine Ratio 13.6 RATIO (10-20) 04/05/24 07:40 Glucose 287 mg/dL (74-106) H 04/05/24 07:40 Microbiology Microbiology: Microbiology 04/04/24 12:43 Mucosa - Nose SARS-CoV-2, Influenza & RSV (PCR) - Final SARS-CoV-2 (COVID 19 PCR) Dosing Weight Weight used for dosin.4 kg Estimated Creatinine Clearance Estimated Creatinine Clearance: 69 ML/MIN Goal Trough Goal Trough: 15-20 mcg/mL Pharmacy Plan for Drug Dosing Pharmacy Plan for Drug Dosing: Give initial load dose of 2000mg IV x1, then continue with 1000mg IV q12h per [facility] dosing protocol. Check a trough before the 4th overall dose tomorrow night. Pharmacy Service will continue to monitor and adjust dosing as required. Follow-Up Labs Follow-Up Labs: Trough: Vancomycin Date/Time Labs Ordered Labs to be done on [date and time ordered]: 04/06/24 21:30
[2024-04-05] MEDS: Budesonide Respules 0.5 MG/2 ML AMPUL.NEB. INHALATION (11:08)
--- NOTE | 2024-04-05 11:45 | PN.HOSP_ITS ---
Reason for Visit Reason for Visit: Diagnoses Hypotension, unspecified (04/04/24) Subjective Subjective Saw patient at bedside this morning. Patient mildly fatigued appearing but otherwise laying back comfortably in bed in no acute distress. Reports feeling slightly better today than yesterday. Fatigue is improving. Continues to have right third finger discomfort, similar to yesterday. Denies any worsening of swelling or any new drainage from the finger. Denies any shortness of breath at rest and breathing comfortably on room air. Denies any upper respiratory symptoms. No other acute concerns. Objective Data Objective Data Vital Signs: Vital Signs Temp Pulse Resp BP Pulse Ox O2 Del Method O2 Flow Rate 99.5 F H 83 18 92/58 L 97 Room Air 2 04/05/24 09:31 04/05/24 09:31 04/05/24 09:31 04/05/24 09:31 04/05/24 09:31 04/05/24 09:31 04/05/24 02:37 Oxygen Flow Rate (L/min) 2 Oxygen Delivery Method Room Air Weight: 94.4 kg Body Mass Index (BMI) 34.6 Intake & Output: Intake and Output for Last 24 Hours 04/03/24 04/04/24 04/05/24 23:59 23:59 23:59 Intake Total 3000 / 3000 2202.09 / 2202.09 Balance 3000 / 3000 2202.09 / 2202.09 Lab / Micro Data 04/05/24 07:40 04/05/24 07:40 Labs: Laboratory Results - last 24 hr 04/04/24 12:43: WBC 4.2 L, RBC 5.04, Hgb 14.8, Hct 43.2, MCV 85.7, MCH 29.4, MCHC 34.3, RDW Std Deviation 39.7, RDW Coeff of Kristi 12.8, Plt Count 160, MPV 11.1, Immature Gran % (Auto) 2.100 H, Neut % (Auto) 72.8 H, Lymph % (Auto) 12.8 L, [place] % (Auto) 10.9 H, Eos % (Auto) 0.5, Baso % (Auto) 0.9, Absolute Neuts (auto) 3.1, Absolute Lymphs (auto) 0.54 L, Nucleated RBC % 0, ESR 10, PT Cancelled, INR Cancelled, APTT Cancelled, Sodium 129 L, Potassium 5.2 H, Chloride 99, Carbon Dioxide 22.0, Anion Gap 8, BUN 18, Creatinine 1.37 H, Estim Creat Clear Calc 47.87, Est GFR (MDRD) Af Amer 50 L, Est GFR (MDRD) Non-Af 42 L, BUN/Creatinine Ratio 13.1, Glucose 446 H, Lactic Acid 2.4 H*, Calcium 9.6, Total Bilirubin 0.40, AST 16, ALT 28, Alkaline Phosphatase 144 H, C-React Prot Ext Range 12.90 H, Total Protein 7.4, Albumin 3.9, Globulin 3.5, Albumin/Globulin Ratio 1.1 04/04/24 13:30: PT 13.2, INR 1.0, APTT 26.4 04/04/24 13:50: Urine Color Yellow, Urine Clarity Sl. Cloudy, Urine pH 5.0, Ur Specific [place] 1.015, Urine Protein 30 H, Urine Glucose (UA) 1000 H, Urine Ketones Negative, Urine Occult Blood 25 H, Urine Nitrite Negative, Urine Bilirubin Negative, Urine Urobilinogen Normal, Ur Leukocyte Esterase Negative, Urine RBC 0-5 SEEN, Urine WBC 0 SEEN, Ur Squamous Epith Cells 0-5 SEEN, Urine Bacteria 0 SEEN, Urine Mucus 0 SEEN 04/04/24 17:23: Lactic Acid 1.4 04/04/24 19:07: POC Glucose 392 H 04/04/24 21:06: POC Glucose 431 H 04/05/24 06:23: POC Glucose 335 H 04/05/24 07:30: Hemoglobin A1c 12.8 H, Iron 22 L, TIBC 227 L, Iron Saturation 9.7 L, Ferritin 148, Folate 16.00 04/05/24 07:40: WBC 2.3 L, RBC 3.83 L, Hgb 11.4 L, Hct 34.3 L, MCV 89.6, MCH 29.8, MCHC 33.2, RDW Std Deviation 42.7, RDW Coeff of Kristi 13.0, Plt Count 135 L, MPV 10.8, Immature Gran % (Auto) 0.900, Neut % (Auto) 56.6, Lymph % (Auto) 27.0, [place] % (Auto) 13.7 H, Eos % (Auto) 0.9, Baso % (Auto) 0.9, Absolute Neuts (auto) 1.3 L, Absolute Lymphs (auto) 0.63 L, Nucleated RBC % 0, Sodium 136, Potassium 4.9, Chloride 108 H, Carbon Dioxide 24.0, Anion Gap 4 L, BUN 13, Creatinine 0.96, Estim Creat Clear Calc 69.02, Est GFR (MDRD) Af Amer 76, Est GFR (MDRD) Non-Af 63, BUN/Creatinine Ratio 13.6, Glucose 287 H, Calcium 7.9 L Micro: Microbiology 04/04/24 12:43 Mucosa - Nose SARS-CoV-2, Influenza & RSV (PCR) - Final SARS-CoV-2 (COVID 19 PCR) Radiography Diagnostic Testing: Radiology Impression Chest X-Ray 04/04/24 12:55 IMPRESSION: Hyperinflation. The lungs are clear. Electronically Signed: Fox Blank MD at 13:09 EST , Finger X-Ray 04/04/24 12:55 IMPRESSION: Diffuse soft tissue swelling. Electronically Signed: Fox Blank MD at 13:08 EST , Rhythm Strip Rhythm Strip: Sinus Tach Rate: 108 Ectopy: None Physical Exam Const alert, oriented x3 and no apparent distress Constitutional Narrative: Elderly female, class I obesity, mildly fatigued appearing, otherwise sitting up comfortably in bed, conversing normally, no acute distress. General Appearance: cooperative and comfortable HEENT normocephalic, head/scalp atraumatic, hearing grossly normal bilaterally and nasal mucous membranes and turbinates normal Eyes PERRL, EOMs intact bilaterally and conjunctivae normal Neck full ROM Chest inspection of chest normal Resp normal respiratory effort and no use of accessory muscles Resp Narrative: Breathing comfortably on room air at rest with good oxygen saturations. No wheezing or crackles noted bilaterally. Cardio regular rate, regular rhythm, no murmurs and peripheral pulses 2+ throughout GI normal to inspection, nondistended, normoactive bowel sounds, soft to palpation, non-tender and non-distended Back/Spine normal ROM Extremity Extremity Narrative: Right third finger with erythema and blister noted near border of the fingernail. Diffuse swelling of the finger noted but no concerns for cellulitis into the hand or arm. Neuro moves all extremities Speech: speech normal Psych mental status grossly normal Assessment & Plan Assessment/Plan (1) Paronychia of finger: (2) Acute dehydration: (3) COVID-19: PLAN: Plan Patient is a 63-year-old female who presented [facility] ED on 04/04/2024 with fever/chills, weakness and confusion. 1. Right third finger paronychia with diffuse swelling of digit ? Finger x-ray on admit showed diffuse soft tissue swelling. Wound culture from 04/04 prelim growing beta Streptococcus and coag negative staph. Will treat with IV vancomycin for now. Monitor for any signs of clinical worsening. 2. VINNIE with dehydration, resolved ? Creatinine 1.37 on admit, baseline around 0.8. Improved back to baseline with heavy IV fluid resuscitation on admission. Suspected that dehydration was multifactorial from third finger infection, COVID infection and uncontrolled type 2 diabetes. 3. Mild COVID-19 infection ? COVID-19 positive in the ED. Chest x-ray unremarkable and patient stable on room air and reports only minor upper respiratory symptoms. No need for steroids or remdesivir. Symptomatic management. 4. Uncontrolled type 2 diabetes mellitus with diabetic neuropathy ? A1c 12.8% on admit. Patient only on metformin 1000 mg twice daily at home. Will start Lantus 15 units daily and Humalog 5 units with meals plus sliding scale insulin while here, adjust as needed. Will need to start patient on insulin regimen going home. Continue home gabapentin. 5. Mild iron deficiency anemia ? Hemoglobin 11.4 on hospital day 2 after IV fluid resuscitation. Iron studies consistent with mild iron deficiency anemia. Will hold on starting iron supplementation given her acute infections but we will plan to start p.o. iron on discharge. 6. Class I obesity ? BMI 34 on admit. Encouraged lifestyle modifications. Complicates hospital course, care and prognosis. 7. Hyperlipidemia ? Continue home statin. DVT prophylaxis: Lovenox CODE STATUS: Full code, unverified Expected disposition: Home, TBD Total clinical time spent by myself addressing the patient's medical issues, reviewing all the data, and collaborating with patient's care team: 35 minutes. Charges/Coding Visit Charges Inpatient E&M: 72630 Subs Hosp L2
[2024-04-05 12:19] LABS: Bedside Glucose 287 mg/dL (74-106)
[2024-04-05 16:47] LABS: Bedside Glucose 312 mg/dL (74-106)
[2024-04-05] MEDS: Ibuprofen 600 MG Tablet PO (17:34)
[2024-04-05] MEDS: 0.9% Saline Lock 10 ML Syringe IV (20:36)
[2024-04-05] MEDS: Vancomycin IV 1,000 MG/200 ML BAG 200 MG IV (21:59)
[2024-04-05] MEDS: Atorvastatin Calcium 40 MG Tablet PO (22:03)
[2024-04-05] MEDS: Amitriptyline 10 MG Tablet PO (22:03)
[2024-04-05 22:24] LABS: Bedside Glucose 364 mg/dL (74-106)
[2024-04-06 04:35] VITALS: BP 98/66; PULSE 73; RESP 18; TEMP 36.9; O2SAT 95
[2024-04-06 05:00] LABS: Bedside Glucose 335 mg/dL (74-106)
[2024-04-06 08:10] LABS: Hematocrit 34.4 % (37-47); Hemoglobin 11.1 g/dL (12.0-15.0); Mean Corp Hgb Conc 32.3 g/dL (32-36); Mean Corpuscular Hgb 29.3 pg (27.0-32.0); Mean Corpuscular Volume 90.8 fL (81-99); Mean Platelet Vol. 11.1 fl (6.2-12.0); Platelet Count 138 K/mm3 (150-450); RBC Distribution Width CV 13.2 % (11.6-14.6); RBC Distribution Width SD 44.3 fl (35.1-43.9); Red Blood Count 3.79 M/mm3 (4.2-5.4); White Blood Count 3.5 K/mm3 (4.4-11.0)
[2024-04-06 08:30] LABS: Anion Gap 6 (5-15); BUN 16 mg/dL (7-18); BUN/Creat Ratio 20.9 RATIO (10-20); Calcium,Total 8.1 mg/dL (8.5-10.1); Chloride 108 mmol/L (98-107); Creatinine, Serum 0.77 mg/dL (0.55-1.02); EST Glomerular Filtration Rate 81 mL/min (>60); Est Glom Filt Rate - Afr Amer 98 mL/min (>60); Estimated Creatinine Clearance 86.06 ml/min; Glucose 365 mg/dL (74-106); Potassium 5.1 mmol/L (3.5-5.1); Sodium Level 135 mmol/L (136-145)
[2024-04-06 08:38] VITALS: BP 110/58; PULSE 70; RESP 18; TEMP 36.7; O2SAT 95
[2024-04-06] MEDS: Heparin Injection (Vial) 5,000 UNIT/ML VIAL 5000 UNIT SC ×2 (08:41→22:06)
[2024-04-06] MEDS: Insulin Lispro 100 UNIT/ML INSULN.PEN SC ×4 (08:42→22:07)
[2024-04-06] MEDS: Insulin Lispro 100 UNIT/ML INSULN.PEN 10 UNIT SC ×3 (08:42→16:23)
[2024-04-06] MEDS: Insulin Glargine-YFGN 100 UNIT/ML Pen 30 UNIT SC (08:43)
[2024-04-06] MEDS: Gabapentin 600 MG Tablet PO ×4 (09:50→22:06)
[2024-04-06] MEDS: Vancomycin IV 1,000 MG/200 ML BAG 200 MG IV (09:52)
--- NOTE | 2024-04-06 11:08 | PCM.PN.HOSP ---
Reason for Visit Reason for Visit: Diagnoses Dehydration (04/04/24) Hypotension, unspecified (04/04/24) Cellulitis of unspecified finger (04/04/24) COVID-19 (04/04/24) Subjective Subjective Saw patient at bedside this morning. Patient appeared similar to yesterday. She did note continued right finger swelling that seemed to extend into her hand. On my exam the swelling appeared similar to yesterday and right middle finger wound is stable. She denies any fevers or chills. No other new concerns today. Objective Data Objective Data Vital Signs: Vital Signs Temp Pulse Resp BP Pulse Ox O2 Del Method O2 Flow Rate 98.1 F 70 18 110/58 L 95 Room Air 2 04/06/24 08:38 04/06/24 08:38 04/06/24 08:38 04/06/24 08:38 04/06/24 08:38 04/06/24 08:58 04/05/24 02:37 Oxygen Flow Rate (L/min) 2 Oxygen Delivery Method Room Air Weight: 94.4 kg Body Mass Index (BMI) 34.6 Intake & Output: Intake and Output for Last 24 Hours 04/04/24 04/05/24 04/06/24 23:59 23:59 23:59 Intake Total 3000 / 3000 4390.01 / 4390.01 341.66 / 341.66 Balance 3000 / 3000 4390.01 / 4390.01 341.66 / 341.66 Lab / Micro Data 04/06/24 07:50 04/06/24 07:50 Labs: Laboratory Results - last 24 hr 04/05/24 11:51: POC Glucose 287 H 04/05/24 16:25: POC Glucose 312 H 04/05/24 21:58: POC Glucose 364 H 04/06/24 04:39: POC Glucose 335 H 04/06/24 07:50: WBC 3.5 L, RBC 3.79 L, Hgb 11.1 L, Hct 34.4 L, MCV 90.8, MCH 29.3, MCHC 32.3, RDW Std Deviation 44.3 H, RDW Coeff of Kristi 13.2, Plt Count 138 L, MPV 11.1, Sodium 135 L, Potassium 5.1, Chloride 108 H, Carbon Dioxide 22.0, Anion Gap 6, BUN 16, Creatinine 0.77, Estim Creat Clear Calc 86.06, Est GFR (MDRD) Af Amer 98, Est GFR (MDRD) Non-Af 81, BUN/Creatinine Ratio 20.9 H, Glucose 365 H, Calcium 8.1 L Micro: Microbiology 04/04/24 13:50 Urine, Clean Catch Urine Culture - Final Culture exhibits no growth. 04/04/24 12:43 Wound - Right Hand Wound Culture - Final Streptococcus agalactiae (B) Staphylococcus epidermidis 04/04/24 12:43 Mucosa - Nose SARS-CoV-2, Influenza & RSV (PCR) - Final SARS-CoV-2 (COVID 19 PCR) Rhythm Strip Rhythm Strip: Sinus Tach Rate: 108 Ectopy: None Physical Exam Const alert, oriented x3 and no apparent distress Constitutional Narrative: Elderly female, class I obesity, mildly fatigued appearing, otherwise sitting up comfortably in bed, conversing normally, no acute distress. Stable. General Appearance: cooperative and comfortable HEENT normocephalic, head/scalp atraumatic, hearing grossly normal bilaterally and nasal mucous membranes and turbinates normal Eyes PERRL, EOMs intact bilaterally and conjunctivae normal Neck full ROM Chest inspection of chest normal Resp normal respiratory effort and no use of accessory muscles Resp Narrative: Breathing comfortably on room air at rest with good oxygen saturations. No wheezing or crackles noted bilaterally. Cardio regular rate, regular rhythm, no murmurs and peripheral pulses 2+ throughout GI normal to inspection, nondistended, normoactive bowel sounds, soft to palpation, non-tender and non-distended Back/Spine normal ROM Extremity Extremity Narrative: Right third finger with erythema and blister noted near border of the fingernail. Diffuse swelling of the finger noted but no concerns for cellulitis into the hand or arm. Stable. Neuro moves all extremities Speech: speech normal Psych mental status grossly normal Assessment & Plan Assessment/Plan (1) Paronychia of finger: (2) Acute dehydration: (3) COVID-19: PLAN: Plan Patient is a 63-year-old female who presented [facility] ED on 04/04/2024 with fever/chills, weakness and confusion. 1. Right third finger paronychia with diffuse swelling of digit ? Finger x-ray on admit showed diffuse soft tissue swelling. Wound culture from 04/04 prelim growing beta Streptococcus and coag negative staph, still awaiting final cultures. Continue treatment with IV vancomycin for now. Monitor for any signs of clinical worsening. 2. VINNIE with dehydration, resolved ? Creatinine 1.37 on admit, baseline around 0.8. Improved back to baseline with heavy IV fluid resuscitation on admission. Suspected that dehydration was multifactorial from third finger infection, COVID infection and uncontrolled type 2 diabetes. 3. Mild COVID-19 infection ? COVID-19 positive in the ED. Chest x-ray unremarkable and patient stable on room air and reports only minor upper respiratory symptoms. No need for steroids or remdesivir. Symptomatic management. 4. Uncontrolled type 2 diabetes mellitus with diabetic neuropathy ? A1c 12.8% on admit. Patient only on metformin 1000 mg twice daily at home. Increased to Lantus 30 units daily and Humalog 10 units with meals plus sliding scale insulin on 04/06 as blood sugars have remained high. Patient has difficult social situation and is self-pay. Case management is following for assistance. Will plan to discharge patient on insulin and have case management assist with this. Planning to [facility]-up with [facility] this coming week as well. Continue home gabapentin. 5. Mild iron deficiency anemia ? Hemoglobin 11.4 on hospital day 2 after IV fluid resuscitation. Iron studies consistent with mild iron deficiency anemia. Will hold on starting iron supplementation given her acute infections but we will plan to start p.o. iron on discharge. 6. Class I obesity ? BMI 34 on admit. Encouraged lifestyle modifications. Complicates hospital course, care and prognosis. 7. Hyperlipidemia ? Continue home statin. DVT prophylaxis: Lovenox CODE STATUS: Full code, unverified Expected disposition: Home, 1-2 days Total clinical time spent by myself addressing the patient's medical issues, reviewing all the data, and collaborating with patient's care team: 35 minutes. Charges/Coding Visit Charges Inpatient E&M: 14423 Subs Hosp L2
[2024-04-06 11:24] LABS: Bedside Glucose 360 mg/dL (74-106)
[2024-04-06 14:00] VITALS: BP 133/63; PULSE 72; RESP 18; TEMP 36.8; O2SAT 97
[2024-04-06 16:44] LABS: Bedside Glucose 169 mg/dL (74-106)
[2024-04-06 21:58] LABS: Vancomycin, Trough Level 9.1 ug/mL (5.0-15.0)
[2024-04-06 22:02] VITALS: BP 151/71; PULSE 78; RESP 18; TEMP 36.8; O2SAT 96
[2024-04-06] MEDS: Atorvastatin Calcium 40 MG Tablet PO (22:06)
[2024-04-06] MEDS: Amitriptyline 10 MG Tablet PO (22:06)
--- NOTE | 2024-04-06 22:17 | PCM.RX.CS ---
Consult Antibiotic Management Pharmacy has been consulted to manage selected antibiotic: Vancomycin Type of Intervention Type of Consult: Follow-up Labs Labs: Sodium 135 mmol/L (136-145) L 04/06/24 07:50 Potassium 5.1 mmol/L (3.5-5.1) 04/06/24 07:50 Chloride 108 mmol/L (98-107) H 04/06/24 07:50 Carbon Dioxide 22.0 mmol/L (21.0-32.0) 04/06/24 07:50 Anion Gap 6 (5-15) 04/06/24 07:50 BUN 16 mg/dL (7-18) 04/06/24 07:50 Creatinine 0.77 mg/dL (0.55-1.02) 04/06/24 07:50 Est GFR (MDRD) Af Amer 98 mL/min (>60) 04/06/24 07:50 Est GFR (MDRD) Non-Af 81 mL/min (>60) 04/06/24 07:50 BUN/Creatinine Ratio 20.9 RATIO (10-20) H 04/06/24 07:50 Glucose 365 mg/dL (74-106) H 04/06/24 07:50 Vancomycin Trough 9.1 ug/mL (5.0-15.0) 04/06/24 21:20 Microbiology Microbiology: Microbiology 04/04/24 12:43 Wound - Right Hand Gram Stain - Final 04/04/24 12:43 Wound - Right Hand Wound Culture - Final Streptococcus agalactiae (B) Staphylococcus epidermidis 04/04/24 13:13 Blood Culture (Wb) - Anticubital Right Blood Culture - Preliminary No growth in 48 hours. 04/04/24 12:43 Blood Culture (Wb) - Venous Blood Culture - Preliminary No growth in 48 hours. 04/04/24 13:50 Urine, Clean Catch Urine Culture - Final Culture exhibits no growth. 04/04/24 12:43 Mucosa - Nose SARS-CoV-2, Influenza & RSV (PCR) - Final SARS-CoV-2 (COVID 19 PCR) Goal Trough Goal Trough: 15-20 mcg/mL Pharmacy Plan for Drug Dosing Pharmacy Plan for Drug Dosing: Pharmacy Service will continue to monitor and adjust dosing as required. TROUGH 9.7 @ 11.5 HOURS. INCREASE TO 1250MG Q12H AND FOLLOW UP TROUGH PRIOR TO 4TH DOSE Follow-Up Labs Follow-Up Labs: Trough: Vancomycin Date/Time Labs Ordered Labs to be done on [date and time ordered]: 04/08 @ 9872
[2024-04-06 22:31] LABS: Bedside Glucose 155 mg/dL (74-106)
[2024-04-06] MEDS: Vancomycin HCl 1,250 MG in 0.9% Normal Saline (250mL Bag) 250 ML 167 MG IV (22:50)
[2024-04-06] MEDS: 0.9% Saline Lock 10 ML Syringe IV (22:56)
[2024-04-07 06:18] VITALS: BP 114/72; PULSE 79; RESP 18; TEMP 37.2; O2SAT 95
[2024-04-07] MEDS: Insulin Lispro 100 UNIT/ML INSULN.PEN 10 UNIT SC ×2 (06:20→12:51)
[2024-04-07] MEDS: Insulin Lispro 100 UNIT/ML INSULN.PEN SC ×2 (06:20→12:51)
[2024-04-07 06:39] LABS: Bedside Glucose 274 mg/dL (74-106)
[2024-04-07 09:47] VITALS: BP 129/71; PULSE 76; RESP 16; TEMP 36.3; O2SAT 96
--- NOTE | 2024-04-07 09:50 | CASEMGMT ---
Addendum entered by Leigha Stevens 04/07/24 14:10: TC to [facility] Retail, cost of both medications for pt is $34.14. Pt states she already has metformin at home and is able to pay for the antibiotic. Pt aware of drive through and will utilize this. Pt denies further needs. Addendum entered by Leigha Stevens 04/07/24 10:47: Spoke with pt, she is aware of insulin and it being otc at [facility] with cost. She is also aware of the syringes. Pt states this is affordable to her. Pt is interested in the rest of her meds being sent to [facility] pharmacy in case of increased cost. Pt is aware of the [facility]enny care program should it be needed. Pt states she has given injections before but would like a refresher from the nurse. Updated Jj of need for insulin administration education. Pt states she would like an appt made for [facility]. She does not have a preference of time or day as she would like the first available appt. Pt denies any further homegoing needs at this time. TC to [facility], appt made for Apr 25 at 10am. Pt aware of this being placed on dc instructions. ID to consult today. Original Note: Spoke with hospitalist who states pt will dc home on insulin and is self pay. He would like the cost of insulins and pt set up with [facility]. TC to [facility], they have Novolin R, Novolin N and 70/30 insulin for $24 per vial. Syringes are approx $12 per box of 100. Updated hospitalist.
[2024-04-07] MEDS: Heparin Injection (Vial) 5,000 UNIT/ML VIAL 5000 UNIT SC (09:54)
[2024-04-07] MEDS: Insulin Glargine-YFGN 100 UNIT/ML Pen 30 UNIT SC (09:56)
[2024-04-07] MEDS: Gabapentin 600 MG Tablet PO (09:56)
[2024-04-07] MEDS: Vancomycin HCl 1,250 MG in 0.9% Normal Saline (250mL Bag) 250 ML 167 MG IV (10:14)
[2024-04-07 11:24] LABS: Bedside Glucose 176 mg/dL (74-106)
--- NOTE | 2024-04-07 13:43 | DCINST_ITS ---
Discharge Instructions Diet Discharge Diet: 2000 Calorie Control Diet DC O2, CPAP, BIPAP needs Additional Home O2 Discharge instructions: No Dressing / Incision Discharge Activity: No Restrictions Follow Up Care Test Results: Test results from this visit will be discussed in further detail at your follow- up appointment, if applicable. Discharge Plan Admission Admit Date/Time: 04/06/24 14:02 Primary Reason for Your Visit: Fever/chills and right finger infection Attending Provider: Zane Rojas Primary Care Provider: Bret López Consulting Providers: Bret Jackson; Jose Luis Vines Instructions Additional Instructions / Restrictions: ? Please take clindamycin 3 times daily for the next 3 days to complete a course of antibiotics for your finger infection. ? For your diabetes, please utilize the following regimen: ? Take Novolin 70/30 insulin 15 units three times daily before meals. Please make sure to gently roll the vial gently between your hands 10 times and invert the vial 10 times to mix the solution properly before using. ? Please continue to take metformin 1000 mg twice daily. ? Please establish with a primary care doctor at [facility] as soon as possible. Discharge Orders/Prescriptions Prescriptions: New clindamycin HCl 300 mg capsule 300 mg PO TID 3 Days Qty: 9 0RF metformin 1,000 mg tablet 1,000 mg PO BID 90 Days Qty: 180 0RF Continued gabapentin 600 mg tablet 600 mg PO 4X/DAY amitriptyline 10 mg tablet 10 mg PO QHS rosuvastatin 20 mg tablet 20 mg PO QHS Discontinued sulfamethoxazole-trimethoprim [Bactrim DS] 800-160 mg tablet 1 tab PO BID 7 Days Qty: 14 0RF metformin 500 mg tablet 1,000 mg PO BID Referrals / Follow Up: [facility] [Provider Group] Anisa Evans, OLIVIA-C [[facility]] - 04/25/24 10:00 am Disposition Disposition (needs filled in before D/C Order can be placed): Home, Self Care
--- NOTE | 2024-04-07 13:48 | CON.PCM.ID_ITS ---
Assessment & Plan Assessment/Plan (1) Paronychia of finger: PLAN: fever resolved. Wound cx with MRSE and strep. Ok for home with 3 days po clinda. Will follow prn, thank you, d/w primary team HPI Consult Data Date of Consult: 04/07/24 HPI Narrative Reason for Consultation: fever HPI Narrative: [place] CEE, is a 63 F who presented 04/04/24 with several days fever, fatigue. Reports several days distal R 3rd finger pain, redness, swelling. No cough or SOB. Admitted on vanc, finger improved, fever resolved. Full ROS performed and neg except as noted above. [facility] Medical History Hyperlipemia HTN (hypertension) Diabetes type 2, controlled Home Medications ?Medication ?Instructions ?Recorded ?Last Taken ?Type amitriptyline 10 mg tablet 10 mg PO QHS 04/04/24 Unknown History gabapentin 600 mg tablet 600 mg PO 4X/DAY 04/04/24 Unknown History rosuvastatin 20 mg tablet 20 mg PO QHS 04/04/24 Unknown History clindamycin HCl 300 mg capsule 300 mg PO TID 3 days #9 caps 04/07/24 Unknown Rx Allergy/AdvReac Type Severity Reaction Status Date / Time acetaminophen (From Percocet) AdvReac Vomiting Verified 04/04/24 12:24 oxycodone (From Percocet) AdvReac Vomiting Verified 04/04/24 12:24 Penicillins AdvReac Other Verified 04/04/24 12:24 Social History Smoking Status: Current every day smoker tobacco type: cigarettes Physical Exam Const alert, oriented x3 and no apparent distress General Appearance: cooperative HEENT normocephalic and head/scalp atraumatic Eyes PERRL and EOMs intact bilaterally Neck supple and No nodes Resp normal air movement and clear to auscultation bilaterally Cardio regular rate and regular rhythm GI soft to palpation, non-tender and non-distended Extremity General Extremity: Negative for edema Skin Skin Narrative: R 3rd finger mild paronychia Neuro CN's II-XII intact bilaterally Lab / Micro Data Attestation: I reviewed the patient's lab results. 04/06/24 07:50 04/06/24 07:50 Labs: Laboratory Results - last 24 hr 04/06/24 16:22: POC Glucose 169 H 04/06/24 21:20: Vancomycin Trough 9.1 04/06/24 22:05: POC Glucose 155 H 04/07/24 06:17: POC Glucose 274 H 04/07/24 11:05: POC Glucose 176 H Micro: Microbiology 04/04/24 12:43 Wound - Right Hand Gram Stain - Final 04/04/24 12:43 Wound - Right Hand Wound Culture - Final Streptococcus agalactiae (B) Staphylococcus epidermidis 04/04/24 13:13 Blood Culture (Wb) - Anticubital Right Blood Culture - Preliminary No growth in 48 hours. 04/04/24 12:43 Blood Culture (Wb) - Venous Blood Culture - Preliminary No growth in 48 hours. 04/04/24 13:50 Urine, Clean Catch Urine Culture - Final Culture exhibits no growth. Rhythm Strip Rhythm Strip: Sinus Tach Rate: 108 Ectopy: None
--- NOTE | 2024-04-07 14:05 | PCM.DC.SUM ---
Providers Date of Admission: 04/04/24 Date of Discharge: 04/07/24 Primary Care Physician: Dr. Bret López MD Consultations 04/07/24 07:21 Consult: Infectious Disease Routine Consulting Provider: Jose Luis Vines Reason for Consult: R finger wound w/ resistant staph epidermidis, assist w/ homegoing abx recs EMERGENT Consult: No MD Notified: Yes Date Notified: 04/07/24 Time Notified: 07:21 Method of Notification: Text Reason For Visit: DEHYDRATION HYPOTENSION Diagnosis Discharge Diagnosis (1) Paronychia of finger: Status: Acute Code(s): L03.019 - Cellulitis of unspecified finger Medications at Discharge Home Medications amitriptyline 10 mg tablet 10 mg PO QHS 04/04/24 gabapentin 600 mg tablet 600 mg PO 4X/DAY 04/04/24 rosuvastatin 20 mg tablet 20 mg PO QHS 04/04/24 clindamycin HCl 300 mg capsule 300 mg PO TID 3 days #9 caps 04/07/24 metformin 1,000 mg tablet 1,000 mg PO BID 90 days #180 tabs 04/07/24 Hospital Course Operations None Procedures - (Chest x-ray, finger x-ray) Summary of Care Provided Minutes Spent on Discharge: 35 Hospital Course: Patient is a 63-year-old female who presented [facility] ED on 04/04/2024 with fever/chills, weakness and confusion. Hospital course as noted below. Patient discharged home in stable condition on 04/07. 1. Right third finger paronychia with diffuse swelling of digit ? Infectious disease followed. Finger x-ray on admit showed diffuse soft tissue swelling. Wound culture from 04/04 grew group B strep and staph epidermidis with some resistance patterns. Treated with IV vancomycin while inpatient with good improvement, stable for discharge home on p.o. clindamycin to complete 7-day course of antibiotics total, stop date 04/10. 2. VINNIE with dehydration, resolved ? Creatinine 1.37 on admit, baseline around 0.8. Improved back to baseline with heavy IV fluid resuscitation on admission. Suspected that dehydration was multifactorial from third finger infection, COVID infection and uncontrolled type 2 diabetes. 3. Mild COVID-19 infection ? COVID-19 positive in the ED. Chest x-ray unremarkable and patient stable on room air and reports only minor upper respiratory symptoms. No need for steroids or remdesivir. Symptomatic management. 4. Uncontrolled type 2 diabetes mellitus with diabetic neuropathy ? A1c 12.8% on admit. Patient only on metformin 1000 mg twice daily at home. Treated with Lantus 30 units daily and Humalog 10 units with meals plus sliding scale insulin with decent control of blood sugars. Case management followed as patient is self-pay and it was most cost effective to start the patient on Novolin 70/30 [id number] on discharge. Discussed over the phone with Dr. Norwood and will start patient on Novolin 70/30 15 units 3 times daily before meals. Will continue her home metformin as well. Recommended patient follow-up closely with her PCP on discharge. Continue home gabapentin. 5. Mild iron deficiency anemia ? Hemoglobin 11.4 on hospital day 2 after IV fluid resuscitation. Iron studies consistent with mild iron deficiency anemia. Will hold on starting any iron supplementation at this time. 6. Class I obesity ? BMI 34 on admit. Encouraged lifestyle modifications. Complicated hospital course, care and prognosis. 7. Hyperlipidemia ? Continue home statin. Total clinical time spent by myself addressing the patient's medical issues, reviewing all the data, and collaborating with patient's care team: 35 minutes. Physical Exam Const alert, oriented x3 and no apparent distress Constitutional Narrative: Elderly female, class I obesity, mildly fatigued appearing, otherwise sitting up comfortably in bed, conversing normally, no acute distress. Stable. General Appearance: cooperative and comfortable HEENT normocephalic, head/scalp atraumatic, hearing grossly normal bilaterally and nasal mucous membranes and turbinates normal Eyes PERRL, EOMs intact bilaterally and conjunctivae normal Neck full ROM Chest inspection of chest normal Resp normal respiratory effort and no use of accessory muscles Resp Narrative: Breathing comfortably on room air at rest with good oxygen saturations. No wheezing or crackles noted bilaterally. Cardio regular rate, regular rhythm, no murmurs and peripheral pulses 2+ throughout GI normal to inspection, nondistended, normoactive bowel sounds, soft to palpation, non-tender and non-distended Back/Spine normal ROM Extremity Extremity Narrative: Right third finger with erythema and blister noted near border of the fingernail. Mild swelling of the finger noted but improved from admission. Neuro moves all extremities Speech: speech normal Psych mental status grossly normal Weight / BMI Weight Weight: 94.4 kg Body Mass Index (BMI) 34.6 ABG / Lab / Microbiology Data 04/06/24 07:50 04/06/24 07:50 Laboratory: Laboratory Results - last 24 hr 04/06/24 16:22: POC Glucose 169 H 04/06/24 21:20: Vancomycin Trough 9.1 04/06/24 22:05: POC Glucose 155 H 04/07/24 06:17: POC Glucose 274 H 04/07/24 11:05: POC Glucose 176 H Microbiology: Microbiology 04/04/24 12:43 Wound - Right Hand Gram Stain - Final 04/04/24 12:43 Wound - Right Hand Wound Culture - Final Streptococcus agalactiae (B) Staphylococcus epidermidis 04/04/24 13:13 Blood Culture (Wb) - Anticubital Right Blood Culture - Preliminary No growth in 48 hours. 04/04/24 12:43 Blood Culture (Wb) - Venous Blood Culture - Preliminary No growth in 48 hours. 04/04/24 13:50 Urine, Clean Catch Urine Culture - Final Culture exhibits no growth. 04/04/24 12:43 Mucosa - Nose SARS-CoV-2, Influenza & RSV (PCR) - Final SARS-CoV-2 (COVID 19 PCR) D/C Instructions Discharge Diet: 2000 Calorie Control Diet DC O2, CPAP, BIPAP Needs Additional Home O2 Discharge instructions: No DC home with Oxygen: No Meaningful Use Info Meaningful Use Meaningful Use Diagnoses (Choose all that apply): None applicable Ischemic Stroke Statin Dosing Therapy Reference: STATIN DOSE THERAPY REFERENCE: * Patients > 75 years receive moderate or high dose statin therapy. * Patients 75 years or YOUNGER should receive HIGH intensity statin dose unless contraindicated. You will be required to document reason for non-treatment if statin daily dose does not meet guidelines. HIGH DOSE STATIN THERAPY DAILY Atorvastatin > than or = to 40 mg Rosuvastatin > than or = to 20 mg Amlodipine + Atorvastatin > than or = to 2.5/40 mg Ezetimibe + Simvastatin 10/80 mg Simvastatin 80mg Discharge Plan Admission Admit Date/Time: 04/06/24 14:02 Primary Reason for Your Visit: Fever/chills and right finger infection Attending Provider: Zane Rojas Primary Care Provider: Bret López Consulting Providers: Bret Jackson; Jose Luis Vines Instructions Additional Instructions / Restrictions: ? Please take clindamycin 3 times daily for the next 3 days to complete a course of antibiotics for your finger infection. ? For your diabetes, please utilize the following regimen: ? Take Novolin 70/30 insulin 15 units three times daily before meals. Please make sure to gently roll the vial gently between your hands 10 times and invert the vial 10 times to mix the solution properly before using. ? Please continue to take metformin 1000 mg twice daily. ? Please establish with a primary care doctor at [facility] as soon as possible. Discharge Orders/Prescriptions Prescriptions: New clindamycin HCl 300 mg capsule 300 mg PO TID 3 Days Qty: 9 0RF metformin 1,000 mg tablet 1,000 mg PO BID 90 Days Qty: 180 0RF Continued gabapentin 600 mg tablet 600 mg PO 4X/DAY amitriptyline 10 mg tablet 10 mg PO QHS rosuvastatin 20 mg tablet 20 mg PO QHS Discontinued sulfamethoxazole-trimethoprim [Bactrim DS] 800-160 mg tablet 1 tab PO BID 7 Days Qty: 14 0RF metformin 500 mg tablet 1,000 mg PO BID Referrals / Follow Up: [facility] [Provider Group] Anisa Evans, INDUSTRIAL HYGIENIST-C [[facility]] - 04/25/24 10:00 am Disposition Disposition (needs filled in before D/C Order can be placed): Home, Self Care Charges/Coding Visit Charges Inpatient E&M: 72628 Disch Hosp >30min
[2024-04-07 17:25] LABS: Vitamin B12 146 pg/mL (211-911)
== END 2024-04-07 14:51 | disposition home or self-care (01) | DRG 602 ==
LOC: ED 15:51 → MS3 18:03
PROVIDERS: Nurse Practitioner; Admitting Provider Internal Medicine; Emergency Provider Emergency Medicine; PCP Family Medicine; Visit Provider Hospitalist
DX: L03.011 Cellulitis of right finger (principal); U07.1 COVID-19; E87.1 Hypo-osmolality and hyponatremia; N17.9 Acute kidney failure, unspecified; L02.511 Cutaneous abscess of right hand; E11.40 Type 2 diabetes mellitus with diabetic neuropathy, unspecified; B95.1 Streptococcus, group B, as the cause of diseases classified elsewhere; D50.9 Iron deficiency anemia, unspecified; I10 Essential (primary) hypertension; Z68.34 Body mass index [BMI] 34.0-34.9, adult; E86.0 Dehydration; E11.65 Type 2 diabetes mellitus with hyperglycemia; E78.5 Hyperlipidemia, unspecified; F17.210 Nicotine dependence, cigarettes, uncomplicated; I95.9 Hypotension, unspecified; E87.5 Hyperkalemia; R00.0 Tachycardia, unspecified; E66.811 Obesity, class 1; Z79.2 Long term (current) use of antibiotics; R29.6 Repeated falls; Z79.84 Long term (current) use of oral hypoglycemic drugs; Z79.899 Other long term (current) drug therapy
CPT/HCPCS: 36415; 71045; 73140; 80048; 80053; 80202; 81001; 82607; 82728; 82746; 82962; 83036; 83540; 83550; 83605; 85025; 85027; 85610; 85652; 85730; 86140; 87040; 87070; 87077; 87086; 87186; 87205; 87631; 93005; 94640; 99285; 99406; A4216; J2405

== ENCOUNTER 2024-04-18 20:56 | Inpatient (IN) | payer SELFPAY ==
[2024-04-18 20:57] VITALS: BP 87/47; PULSE 117; RESP 22; TEMP 37.1; O2SAT 98
[2024-04-18 21:00] VITALS: BP 107/51; BP 88/47; PULSE 102; RESP 18; TEMP 37; O2SAT 98; BMI 333.6
--- NOTE | 2024-04-18 21:09 | ED.VIS.FALL ---
HPI HPI - Fall History of Present Illness Chief Complaint: Fall PFSH PFS Medical History Hyperlipemia HTN (hypertension) Diabetes type 2, controlled Home Medications ?Medication ?Instructions ?Recorded ?Last Taken ?Type amitriptyline 10 mg tablet 10 mg PO QHS 04/04/24 Unknown History gabapentin 600 mg tablet 600 mg PO 4X/DAY 04/04/24 Unknown History rosuvastatin 20 mg tablet 20 mg PO QHS 04/04/24 Unknown History clindamycin HCl 300 mg capsule 300 mg PO TID 3 days #9 caps 04/07/24 Unknown Rx metformin 1,000 mg tablet 1,000 mg PO BID 90 days #180 tabs 04/07/24 Unknown Rx Allergy/AdvReac Type Severity Reaction Status Date / Time acetaminophen (From Percocet) AdvReac Vomiting Verified 04/18/24 20:57 oxycodone (From Percocet) AdvReac Vomiting Verified 04/18/24 20:57 Penicillins AdvReac Other Verified 04/18/24 20:57 Social History Smoking Status: Current every day smoker tobacco type: cigarettes EXAM Physical Exam Const Vital Signs: 04/18/24 20:57 04/18/24 21:00 04/18/24 21:00 Temperature 98.7 F 98.6 F Temperature Source Oral Oral Pulse Rate 117 H 102 H Respiratory Rate 22 H 18 Respiratory Effort Respiratory Depth Respiratory Pattern Blood Pressure 87/47 L 88/47 L 107/51 L Blood Pressure Mean 60 60 69 Pulse Ox 98 98 Oxygen Delivery Method Room Air Room Air 04/18/24 21:24 04/18/24 22:00 04/18/24 22:07 Temperature 98.2 F Temperature Source Oral Pulse Rate 103 H Respiratory Rate 18 Respiratory Effort Normal Respiratory Depth Normal Respiratory Pattern Normal Blood Pressure 118/62 Blood Pressure Mean 80 Pulse Ox 94 Oxygen Delivery Method Room Air Room Air 04/18/24 22:44 04/18/24 23:00 04/19/24 00:00 Temperature 98.7 F 98.9 F Temperature Source Oral Oral Pulse Rate 103 H 103 H 102 H Respiratory Rate 24 H 18 16 Respiratory Effort Respiratory Depth Respiratory Pattern Tachypnea Blood Pressure 96/67 98/59 L Blood Pressure Mean 76 72 Pulse Ox 97 93 Oxygen Delivery Method Room Air Room Air 04/19/24 00:28 Temperature 98.6 F Temperature Source Oral Pulse Rate 101 H Respiratory Rate 18 Respiratory Effort Respiratory Depth Respiratory Pattern Blood Pressure 98/57 L Blood Pressure Mean 70 Pulse Ox 96 Oxygen Delivery Method Room Air Sepsis Attestation Sepsis Alert: Yes Sepsis Attestation: Agree w/Sepsis Date exam was performed: 04/19/24 Time exam was performed: 00:32 Possible Source of Sepsis: Unknown Sepsis Organ Dysfunction Criteria Present: SBP < 90 mmHg or MAP < 65 mmHg, Creatinine > 2.0 mg/dL, Lactic Acid > 2 mmol/L and New/Unexplained change in mental status Fluid Resuscitation Fluid resuscitation indicated?: Yes Fluid Resuscitation ordered: 30 ml/kg fluid bolus ordered (30 cc/kg bolus of ideal body weight given) Sepsis Note Date exam was performed: 04/19/24 Time exam was performed: 00:33 Sepsis Attestation: Sepsis re-evaluation was performed Response to fluids: Fluid responsive hypotension MDM MDM MDM Narrative Medical decision making narrative: HISTORY OF PRESENT ILLNESS: 63-year-old female presents with dizziness. This began yesterday. She endorses a fall secondary dizziness at approximately 830 tonight. She notes she fell backwards hitting the back of her head. She also endorses another fall which there is no injury. She notes her dizziness is worse with standing. Denies chest pain or shortness of breath. Notes dizziness is worse with ambulation. Denies loss of movement or sensation. Per the patient's family she is diagnosed with COVID 2 weeks ago. Per the patient she does not feel ill. No cough, congestion, fever. No abdominal pain. REVIEW OF SYSTEMS: Pertinent positives: Dizziness, lightheadedness, fall, head trauma Pertinent negatives: Abdominal pain, urinary complaints PHYSICAL EXAM: Nursing triage notes reviewed, Vital signs reviewed Constitutional: please see mdm HENT: MMM Eyes: Pupils equal round and reactive to light, Extraocular muscles intact Neck: No stridor, no JVD, full neck ROM Lungs: Clear to auscultation, No wheezing or rales. No increased work of breathing, no conversational dyspnea, no accessory muscle use, no nasal flaring. No respiratory distress noted Heart: Regular rate and rhythm, No murmurs, No rubs and No gallops, 2+ distal pulses (radial, femoral, posterior tibial) in all extremities Abdomen: Soft, there is no tenderness, rigidity, rebound or guarding, no obvious peritoneal signs, no palpable pulsatile abdominal masses, no auscultated abdominal bruit : No CVAT Extremities: No edema, fingers appear within normal limits with no sign of paronychia or other severe infection noted to the distal digits. Neuro: No new focal neurological deficits, at baseline, cranial nerves II through XII intact, 5/5 strength in all present extremities. Intact sensation to light touch in all present extremities, 2+ reflexes bilateral patella tendons. Skin: No rash or lesions noted MEDICAL DECISION MAKING: Chief Complaint: Dizziness External records reviewed: Reviewed recent ED visit which patient was admitted. Factors affecting care: Poorly controlled type 2 diabetes, hypertension, hyperlipidemia Social determinants of health: none History obtained from others: Family Consults: Internal medicine ( Dr. Johnson) -discussed admitting to the ICU secondary to sepsis with no source. Dr. Way requested a CT scan on pelvis rule out the abdomen as a source of her infection. MDM Narrative: The patient was initially hypotensive with a blood pressure of 88/47, tachycardic with a heart rate of 117, she was tachypneic with a respiratory 22, she is afebrile she is saturating 98% on room air I considered the following differential diagnosis: Hypotension, sepsis, anemia, electro disturbance, ICH, COVID, UTI, hepatic or infectious encephalopathy I obtained a broad lab and imaging workup. Initially evaluate the patient. ALL IMAGES (IF OBTAINED) HAVE BEEN PERSONALLY REVIEWED AND INTERPRETED BY MYSELF. VBG shows evidence of metabolic acidosis with a pH of 7.2 and a bicarb of 18.4 EKG with sinus tachycardia rate of 103, normal axis, no intervals, no STEMI CBC with marked leukocytosis consistent with systemic inflammation, no anemia BMP with VINNIE, hyponatremia and hyperkalemia. Serum acetone negative VBG showed evidence of metabolic acidosis Initial lactate elevated consistent with endorgan hypoperfusion LFTs show no evidence of hepatobiliary pathology. I have personally reviewed the patient's chest x-ray. Chest x-ray is unremarkable for pulmonary edema, pneumothorax, pneumonia or focal cardiopulmonary abnormality. CT scan of the head and cervical spine were negative for traumatic injuries Urinalysis shows no evidence of urinary inflammation suggestive of UTI CT scan abdomen pelvis without contrast was read reviewed personally myself showed no evidence of obvious intra-abdominal infectious pathology. On reassessment patient blood pressure improved to 106/81 heart rate improved to 102 she remained afebrile, respiratory improved to 16. Given there is no source of infection I did order straight cath to try assess patient's urinalysis and a Noncon CT scan abdomen pelvis given kidney injury In terms of sepsis patient was given an ideal body weight 30 cc/kg bolus. She is given broad-spectrum antibiotics after blood and urine cultures were drawn. Awaiting CT scan for final disposition. I did discuss the case with the hospitalist who recommended ICU but wanted to await the CT scan to ensure there is nothing acutely surgical. SIgned out to Dr. Cisneros pending CT read and final dispo. The patient and/or family, caregivers express understanding. The patient and/or family, caregivers agrees with the plan. Shared decision making: I will have a discussion with the patient and or visitors regarding risk/benefits of further testing or admission. They will be made aware of of the risk/benefits inherent in this decision they will be given the opportunity to voice understanding. Total critical care time today provided was at least 35 minutes. This excludes separately billable procedures. Critical care time (if documented) is secondary to the patient having high probability of clinically significant/life threatening deterioration in the patient's condition which required my urgent intervention. Impression: 1. Dizziness 2. Hypotension 3. Tachycardia 4. Metabolic acidosis 5. Hyponatremia 3. Hyperkalemia Dispo: Admit to PCU This note was generated with [employer] dictation software. It may contain incorrect words, spelling, and punctuation that were not noted in review of the chart prior to signing. Lab Data Labs: Laboratory Results - last 24 hr 04/18/24 04/19/24 21:39 00:10 WBC 17.1 H RBC 4.63 Hgb 13.5 Hct 41.3 MCV 89.2 MCH 29.2 MCHC 32.7 RDW Std Deviation 42.3 RDW Coeff of Kristi 12.9 Plt Count 266 MPV 10.3 Immature Gran % (Auto) 1.300 H Neut % (Auto) 93.5 H Lymph % (Auto) 1.0 L Schuyler % (Auto) 3.5 Eos % (Auto) 0.5 Baso % (Auto) 0.2 Absolute Neuts (auto) 16.0 H Absolute Lymphs (auto) 0.17 L Nucleated RBC % 0 PT 12.9 INR 1.0 APTT 28.3 Sodium 135 L Potassium 5.3 H Chloride 101 Carbon Dioxide 22.0 Anion Gap 12 BUN 26 H Creatinine 2.09 H Est GFR (MDRD) Af Amer 31 L Est GFR (MDRD) Non-Af 26 L BUN/Creatinine Ratio 12.4 Glucose 321 H Lactic Acid 5.3 H* Calcium 9.1 Total Bilirubin 0.70 AST 23 ALT 34 Alkaline Phosphatase 71 Total Protein 6.7 Albumin 3.4 Globulin 3.3 Albumin/Globulin Ratio 1.0 Urine Color Yellow Urine Clarity Sl. Cloudy Urine pH 6.0 Ur Specific [place] 1.020 Urine Protein 30 H Urine Glucose (UA) 50 H Urine Ketones Negative Urine Occult Blood Negative Urine Nitrite Negative Urine Bilirubin 3 H Urine Urobilinogen 1 H Ur Leukocyte Esterase 25 H Urine RBC 0 SEEN Urine WBC 5-10 SEEN Ur Squamous Epith Cells 0-5 SEEN Urine Bacteria 0 SEEN Fine Granular Casts 0-5 SEEN Urine Mucus 0 SEEN Acetone Level NEGATIVE ABG Data ABG results: ABG 04/18/24 21:56 Specimen Type GLADIS Sample Site Not entered VBG pH 7.26 L VBG pO2 41 H VBG HCO3 18 L VBG Total CO2 20 L VBG O2 Sat (Calc) 68 VBG Base Excess -9 L POC Mix VBG pCO2 Pt Tmp 41.3 O2 Delivery Device Not entered Radiography Diagnostic Testing: Clinical Impression(s) from Imaging Studies Brain CT 04/18/24 21:25 IMPRESSION: Negative head/brain CT without intravenous contrast. AIDOC was utilized to assist in identifying pertinent positive findings Electronically Signed: Clinton Blum MD at 23:48 EST , Cervical Spine CT 04/18/24 21:25 IMPRESSION: No evidence of acute cervical spinal fracture or spondylolisthesis. Electronically Signed: Clinton Blum MD at 23:57 EST , Chest X-Ray 04/18/24 22:00 IMPRESSION: No radiographic evidence of acute cardiopulmonary disease. Electronically Signed: Clinton Blum MD at 22:52 EST , Discharge Plan Triage Chief Complaint: Fall Other Complaint: Hyperglycemia Weakness ED Provider: Terell Padilla Dx/Rx/DC Orders Primary Care Provider: Bret López
--- NOTE | 2024-04-18 21:24 | EKG12_ITS ---
Test Reason : FALL Blood Pressure : */* mmHG Vent. Rate : 103 BPM Atrial Rate : 103 BPM P-R Int : 160 ms QRS Dur : 94 ms QT Int : 310 ms P-R-T Axes : 61 51 67 degrees QTcB Int : 406 ms Sinus tachycardia Otherwise normal ECG Confirmed by KELLY CASTELLANOS, GISEL ([id number]), science editor PHILLIP MIMS ([id number]) on 04/21/2024 8:41:11 AM Referred By: Confirmed By: GISEL MENDOZA MD
--- NOTE | 2024-04-18 21:25 | CT_ITS ---
EXAM: CT HEAD WITHOUT INTRAVENOUS CONTRAST CLINICAL INDICATION: head trauma TECHNIQUE: Multiple axial images were obtained of the head without intravenous contrast. CTDIvol = ( 44.99 ) mGy, DLP = ( 779.24 ) mGycm This CT exam was performed using one or more of the following dose reduction techniques: automated exposure control, adjustment of the mA and/or kV according to patient size, and/or use of iterative reconstruction technique. COMPARISON: No relevant prior studies available. FINDINGS: BRAIN AND EXTRA-AXIAL SPACES: Unremarkable. No intra- or extra-axial hemorrhage. No evidence of acute infarct. No intracranial mass or mass effect. There is preservation of the zimmerman/white matter interface. Posterior fossa structures are unremarkable. Ventricles are appropriate for age. No hydrocephalus. Basal cisterns are patent. BONES/JOINTS: Unremarkable. No discrete lytic or blastic abnormalities. SINUSES: Unremarkable as visualized. Clear. MASTOID AIR CELLS: Unremarkable. Clear. ORBITS: Visualized globes, extraocular muscles, optic nerves and retrobulbar fat appear unremarkable. CT/Brain/Head without Contrast IMPRESSION: Negative head/brain CT without intravenous contrast. AIDOC was utilized to assist in identifying pertinent positive findings Electronically Signed: Clinton Blum MD at 23:48 EST ,
--- NOTE | 2024-04-18 21:25 | CT_ITS ---
EXAM: CT CERVICAL SPINE WITHOUT INTRAVENOUS CONTRAST CLINICAL INDICATION: neck pain TECHNIQUE: Helically acquired images were obtained of the cervical spine without intravenous contrast. 2D reformatted images were reviewed. CTDIvol = ( 28.44 ) mGy, DLP = ( 552.23 ) mGycm This CT exam was performed using one or more of the following dose reduction techniques: automated exposure control, adjustment of the mA and/or kV according to patient size, and/or use of iterative reconstruction technique. COMPARISON: No relevant prior studies available. FINDINGS: VERTEBRAE: Unremarkable. No fracture. No traumatic subluxation. No discrete lytic or blastic abnormality. Normal alignment. Normal craniocervical junction and cervicothoracic junction. DISCS/SPINAL CANAL/NEURAL FORAMINA: Unremarkable. Disc heights are preserved. No critical stenosis. SOFT TISSUES: Unremarkable. No prevertebral soft tissue swelling. LYMPH NODES: Unremarkable. No cervical adenopathy. LUNG APICES: Unremarkable as visualized. Clear. CT/Spine Cervical without Contras IMPRESSION: No evidence of acute cervical spinal fracture or spondylolisthesis. Electronically Signed: Clinton Blum MD at 23:57 EST ,
[2024-04-18 21:59] LABS: Blood Gas Specimen Type VEN; O2 Delivery Device Not entered; SITE Not entered; VBG BASE EXCESS -9 mmol/L (-1.0-3.5); VBG Bicarbonate 18 mmol/L (22-26); VBG PO2 41 mmHg (25-40); VBG SO2 68 % (50-70); VBG TCO2 20 mmol/L (23-33); VBG pCO2 41.3 mmHg (41-51); VBG pH 7.26 (7.32-7.42)
[2024-04-18 21:59] LABS: Absolute Lymphocyte Count 0.17 X10^3/uL (0.83-4.51); Basophil# 0.04 X10^3/uL; Basophil% 0.2 % (0-1); Eosinophil# 0.08 X10^3/uL; Eosinophils% 0.5 % (0-5); Hematocrit 41.3 % (37-47); Hemoglobin 13.5 g/dL (12.0-15.0); Lymphocyte # 0.17 X10^3/ul (0.83-4.51); Mean Corp Hgb Conc 32.7 g/dL (32-36); Mean Corpuscular Hgb 29.2 pg (27.0-32.0); Mean Corpuscular Volume 89.2 fL (81-99); Mean Platelet Vol. 10.3 fl (6.2-12.0); Monocyte# 0.59 X10^3/uL; Monocyte% 3.5 % (0-10); NRBC Flagged by Analyzer 0 % (0-5); Neutrophil # 15.95 X10^3/uL (2.7-7.7); Neutrophil % 93.5 % (47-70); POSITIVE DIFFERENTIAL YES; Platelet Count 266 K/mm3 (150-450); RBC Distribution Width CV 12.9 % (11.6-14.6); RBC Distribution Width SD 42.3 fl (35.1-43.9); Red Blood Count 4.63 M/mm3 (4.2-5.4); White Blood Count 17.1 K/mm3 (4.4-11.0)
[2024-04-18 22:00] VITALS: BP 118/62; PULSE 103; RESP 18; TEMP 36.8; O2SAT 94
--- NOTE | 2024-04-18 22:00 | RAD_ITS ---
EXAM: XR CHEST, 1 VIEW CLINICAL INDICATION: SOB, cough TECHNIQUE: Frontal view of the chest. COMPARISON: No relevant prior studies available. FINDINGS: LUNGS AND PLEURAL SPACES: Unremarkable. No consolidation or edema. No pneumothorax. No effusion. HEART: Unremarkable. Cardiac silhouette not enlarged. MEDIASTINUM: Central airways and mediastinal contour are unremarkable. BONES/JOINTS: Degenerative changes of the spine. No acute fracture. SOFT TISSUES: Unremarkable. RAD/Chest 1 View (Portable) IMPRESSION: No radiographic evidence of acute cardiopulmonary disease. Electronically Signed: Clinton Blum MD at 22:52 EST ,
[2024-04-18 22:07] LABS: Prothrombin Time (Protime)PT. 12.9 SECONDS (11.7-14.9)
[2024-04-18 22:08] LABS: Partial Thromboplast Time 28.3 Seconds (24.1-36.2)
[2024-04-18] MEDS: 0.9% Normal Saline (1000mL) 1,000 ML 999 ML IV ×2 (22:29→23:52)
[2024-04-18 22:37] LABS: AST(SGOT) 23 U/L (15-37); Alanine Aminotransfer ALT/SGPT 34 U/L (13-56); Albumin, Serum 3.4 g/dL (3.2-5.0); Alkaline Phosphatase 71 U/L (45-117); Anion Gap 12 (5-15); BUN 26 mg/dL (7-18); BUN/Creat Ratio 12.4 RATIO (10-20); Calcium,Total 9.1 mg/dL (8.5-10.1); Chloride 101 mmol/L (98-107); Creatinine, Serum 2.09 mg/dL (0.55-1.02); EST Glomerular Filtration Rate 26 mL/min (>60); Est Glom Filt Rate - Afr Amer 31 mL/min (>60); Globulin 3.3 g/dL (2.2-4.2); Glucose 321 mg/dL (74-106); Potassium 5.3 mmol/L (3.5-5.1); Protein, Total 6.7 g/dL (6.4-8.2); Sodium Level 135 mmol/L (136-145)
[2024-04-18] MEDS: Ipratropium/Albuterol Sulfate 3 ML AMPUL.NEB INHALATION (22:42)
[2024-04-18 22:44] VITALS: PULSE 103; RESP 24
[2024-04-18 22:49] LABS: Lactic Acid 5.3 mmol/L (0.4-1.9)
[2024-04-18 23:00] VITALS: BP 96/67; PULSE 103; RESP 18; TEMP 37.1; O2SAT 97
[2024-04-18] MEDS: Cefepime HCl 2 GM in 0.9% Normal Saline (100mL MB+) 100 ML IV (23:52)
[2024-04-19] VITALS (27 sets, daily range): BP systolic 82–134; BP diastolic 40–104; PULSE 96–116; RESP 14–32; TEMP 37–39.3; O2SAT 92–98; BMI 35.6
--- NOTE | 2024-04-19 00:21 | HP.PCM.HOS_ITS ---
[facility] - General General Date of Admission: 04/19/24 Date of Service: 04/19/24 Chief Complaint: Dizziness and Fall. HPI Narrative NORTH CEE, is a 63 F with a past medical history of essential hypertension, hyperlipidemia; on rosuvastatin, ongoing tobacco abuse, DM-2; uncontrolled hyperglycemia with recent hemoglobin A1c of ~12% causing patient to recently be started on metformin, diabetic neuropathy; on gabapentin, history of depression; on amitriptyline, recently diagnosed paronychia; with patient treated with oral clindamycin and recently diagnosed COVID-19 ~2 weeks ago who presents to [facility] ER complaining of dizziness and fall. Ms. Cee reports her symptoms began approximately 2030 hrs. when she had a sudden bout of dizziness that was made worse with standing and fell backwards hitting the back of her head. She denies loss of consciousness or other significant trauma with her fall. Ironically, the patient states that she does not feel ill and she denies associated fever, chills, cough, chest congestion, abdominal pain, dysuria, nausea, vomiting, diarrhea, constipation or chest pain. In the ER she was noted to have CT evidence of Pyelonephritis suspected to be the primary cause of her Severe Sepsis with Septic shock: evidenced by leukocytosis of 17.1 K with Left-shift of 1.3% and Lactic Acidosis of 5.3 mmol/L along with severe hypotension of 87/47 mmHg and sinus tachycardia of 117 bpm present on admission after recently starting metformin with suspected adverse drug reaction due to Metformin-induced Lactic Acidosis with additional laboratory evidence of VINNIE; with elevated serum creatinine of 2.09 mg deciliter and BUN of 26 mg/dL present on admission (up from her baseline of 0.77 mg deciliter and 16 mg/dL on April 06, 2024) complicated by Dizziness with Fall attributable to orthostatic hypotension and DM-2 uncontrolled; with hyperglycemia of 321 mg/dL present on admission and recent hemoglobin A1c of 12.8% on April 05, 2024 in addition to recently diagnosed B12 deficiency of 146 pg/mL on April 05, 2024 and she was then admitted to the ICU for treatment under the sepsis protocol for stay that is expected to extend beyond 2 midnights. [facility] Medical History Hyperlipemia HTN (hypertension) Diabetes type 2, controlled Home Medications ?Medication ?Instructions ?Recorded ?Last Taken ?Type amitriptyline 10 mg tablet 10 mg PO QHS 04/04/24 Unknown History gabapentin 600 mg tablet 600 mg PO 4X/DAY 04/04/24 Unknown History rosuvastatin 20 mg tablet 20 mg PO QHS 04/04/24 Unknown History clindamycin HCl 300 mg capsule 300 mg PO TID 3 days #9 caps 04/07/24 Unknown Rx metformin 1,000 mg tablet 1,000 mg PO BID 90 days #180 tabs 04/07/24 Unknown Rx Allergy/AdvReac Type Severity Reaction Status Date / Time acetaminophen (From Percocet) AdvReac Vomiting Verified 04/18/24 20:57 oxycodone (From Percocet) AdvReac Vomiting Verified 04/18/24 20:57 Penicillins AdvReac Other Verified 04/18/24 20:57 Social History Smoking Status: Current every day smoker tobacco type: cigarettes ROS ROS Narrative Review of Systems: Constitutional: Patient developed fever to 102.7 ?F shortly after admission. Eyes: Patient denies changes in vision or discharge from eyes. ENT: Patient denies runny nose, sore throat or ear pain. Resp: Patient denies shortness of breath or cough. CV: Patient denies chest pain, palpitations or heart racing. GI: Patient denies abdominal pain, nausea, vomiting, diarrhea or constipation. : Patient denies dysuria or hematuria. MSK: Patient admits to generalized weakness but she denies arthralgias. Skin: Patient denies rash, abscess or jaundice. Psych: Patient denies symptoms of uncontrolled depression or anxiety. Neuro: Patient denies headache, paresthesias or focal neurologic deficits. Allergy: Patient denies lip swelling, tongue swelling or urticaria. Hematology: Patient denies easy bleeding or easy bruisability. Endocrinology: Patient denies polyuria, polydipsia or polyphagia. 14 point review of systems otherwise negative other than positives noted above in HPI. Vital Signs Vital Signs Vital Signs: 04/18/24 20:57 04/18/24 21:00 04/18/24 21:00 Temperature 98.7 F 98.6 F Temperature Source Oral Oral Pulse Rate 117 H 102 H Respiratory Rate 22 H 18 Respiratory Effort Respiratory Depth Respiratory Pattern Blood Pressure 87/47 L 88/47 L 107/51 L Blood Pressure Mean 60 60 69 Pulse Ox 98 98 Oxygen Delivery Method Room Air Room Air 04/18/24 21:24 04/18/24 22:00 04/18/24 22:07 Temperature 98.2 F Temperature Source Oral Pulse Rate 103 H Respiratory Rate 18 Respiratory Effort Normal Respiratory Depth Normal Respiratory Pattern Normal Blood Pressure 118/62 Blood Pressure Mean 80 Pulse Ox 94 Oxygen Delivery Method Room Air Room Air 04/18/24 22:44 04/18/24 23:00 Temperature 98.7 F Temperature Source Oral Pulse Rate 103 H 103 H Respiratory Rate 24 H 18 Respiratory Effort Respiratory Depth Respiratory Pattern Tachypnea Blood Pressure 96/67 Blood Pressure Mean 76 Pulse Ox 97 Oxygen Delivery Method Room Air Physical Exam Const alert, oriented x3, no apparent distress and average body habitus General Appearance: cooperative HEENT normocephalic, head/scalp atraumatic, hearing grossly normal bilaterally and moist oral mucous membranes Eyes PERRL and EOMs intact bilaterally Neck no lymphadenopathy and supple Resp normal respiratory effort, no retractions, no use of accessory muscles and clear to auscultation bilaterally Cardio regular rate and regular rhythm GI normal to inspection, nondistended, normoactive bowel sounds, soft to palpation, non-tender and non-distended Extremity normal to inspection, full ROM and no clubbing, cyanosis or edema Skin Skin Narrative: Patient is no evidence of rash, abscess or jaundice. Neuro oriented x3, CN's II-XII intact bilaterally, moves all extremities and no focal motor deficits Sensorium / Orientation: awake, alert, oriented to person, oriented to place and oriented to time Speech: speech normal Psych affect normal Results Medical Records Data Attestation: I reviewed the patient's medical records Lab / Micro Data Attestation: I reviewed the patient's lab results. 04/18/24 21:39 04/18/24 21:39 Labs: Laboratory Results - last 24 hr 04/18/24 21:39: WBC 17.1 H, RBC 4.63, Hgb 13.5, Hct 41.3, MCV 89.2, MCH 29.2, MCHC 32.7, RDW Std Deviation 42.3, RDW Coeff of Kristi 12.9, Plt Count 266, MPV 10.3, Immature Gran % (Auto) 1.300 H, Neut % (Auto) 93.5 H, Lymph % (Auto) 1.0 L , Kemper % (Auto) 3.5, Eos % (Auto) 0.5, Baso % (Auto) 0.2, Absolute Neuts (auto) 16.0 H, Absolute Lymphs (auto) 0.17 L, Nucleated RBC % 0, PT 12.9, INR 1.0, APTT 28.3, Sodium 135 L, Potassium 5.3 H, Chloride 101, Carbon Dioxide 22.0, Anion Gap 12, BUN 26 H, Creatinine 2.09 H, Est GFR (MDRD) Af Amer 31 L, Est GFR (MDRD) Non-Af 26 L, BUN/Creatinine Ratio 12.4, Glucose 321 H, Lactic Acid 5.3 H*, Calcium 9.1, Total Bilirubin 0.70, AST 23, ALT 34, Alkaline Phosphatase 71, Total Protein 6.7, Albumin 3.4, Globulin 3.3, Albumin/Globulin Ratio 1.0, Acetone Level NEGATIVE Micro: Microbiology 04/18/24 21:39 Mucosa - Nose SARS-CoV-2, Influenza & RSV (PCR) - Final ABG Data ABG results: ABG 04/18/24 21:56 Specimen Type GLADIS Sample Site Not entered VBG pH 7.26 L VBG pO2 41 H VBG HCO3 18 L VBG Total CO2 20 L VBG O2 Sat (Calc) 68 VBG Base Excess -9 L POC Mix VBG pCO2 Pt Tmp 41.3 O2 Delivery Device Not entered Imaging Radiology Impression Brain CT 04/18/24 21:25 IMPRESSION: Negative head/brain CT without intravenous contrast. AIDOC was utilized to assist in identifying pertinent positive findings Electronically Signed: Clinton Blum MD at 23:48 EST , Cervical Spine CT 04/18/24 21:25 IMPRESSION: No evidence of acute cervical spinal fracture or spondylolisthesis. Electronically Signed: Clinton Blum MD at 23:57 EST , Chest X-Ray 04/18/24 22:00 IMPRESSION: No radiographic evidence of acute cardiopulmonary disease. Electronically Signed: Clinton Blum MD at 22:52 EST , - [facility] Imaging Services [address] [place] [address] [id number] Abdomen/Pelvis without Cont MR#: [id number] Acct: [id number] Name: NORTH CEE Rep #: [id number] : 1960 F 63 From: Clinton Blum MD PCP: Dr. Bret López MD Status: ADM IN Study: Abdomen/Pelvis without Cont Date of Exam: 04/19/24 Exam# [id number] Ordering Dr: Terell Padilla DO EXAM: CT ABDOMEN AND PELVIS WITHOUT INTRAVENOUS CONTRAST CLINICAL INDICATION: sepsis no source TECHNIQUE: Helically acquired images were obtained of the abdomen and pelvis without intravenous contrast. CTDIvol = ( 14.32 ) mGy, DLP = ( 726.32 ) mGycm This CT exam was performed using one or more of the following dose reduction techniques: automated exposure control, adjustment of the mA and/or kV according to patient size, and/or use of iterative reconstruction technique. COMPARISON: No relevant prior studies available. FINDINGS: LOWER THORAX: Mild dependent atelectasis at the posterior lower lobes. No cardiomegaly. No significant pericardial effusion. ABDOMEN: LIVER: Unremarkable. Homogeneous. GALLBLADDER AND BILE DUCTS: Gallbladder. No definite gallstones. No gallbladder distention or wall edema. No intra- or extrahepatic biliary ductal dilation. PANCREAS: Unremarkable. No focal cystic mass. SPLEEN: Unremarkable. Normal size without focal cystic or solid mass. ADRENALS: Unremarkable. No nodules. KIDNEYS AND URETERS: Symmetric stranding about both kidneys raises the possibility of renal infection. Normal renal size and position. No hydronephrosis. No other renal abnormalities. STOMACH AND BOWEL: Unremarkable. No focal inflammatory change. No inflammatory or obstructive changes of bowel. PELVIS: APPENDIX: No evidence of acute appendicitis. BLADDER: Unremarkable. REPRODUCTIVE: Unremarkable as visualized. No adnexal masses. ABDOMEN and PELVIS: INTRAPERITONEAL SPACE: Unremarkable. No ascites or other fluid collection. No significant free air. BONES/JOINTS: Degenerative changes involving the pelvis and spine. 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 Partial defects at L5 bilaterally with grade 2 anterolisthesis of L5 on S1. At least moderate degenerative disc disease at L5-S1. No suspicious lytic or blastic abnormality. SOFT TISSUES: Unremarkable. No discrete abdominal or pelvic wall hernia. VASCULATURE: Unremarkable. Abdominal aorta is non-dilated. LYMPH NODES: Unremarkable. No enlarged lymph nodes. CT/Abdomen/Pelvis without Cont IMPRESSION: Symmetric stranding about both kidneys raises the possibility of renal infection. Ancillary findings as above. Electronically Signed: Clinton Blum MD at 2:20 EST Reading Location ID and State: [address] [place] [address] Tel , Service support , CC: Dr. Bret López MD; Dr. Terell Padilla DO ~ Internet Marketing Assistant: Signed Assessment & Plan Assessment/Plan (1) Septic shock: (2) Pyelonephritis: (3) COVID-19: (4) Lactic acidosis: (5) Adverse drug reaction: QUALIFIERS: Encounter type: initial encounter Qualified Code(s): T50.905A - Adverse effect of unspecified drugs, medicaments and biological substances, initial encounter (6) VINNIE (acute kidney injury): (7) Dizziness: (8) Fall: QUALIFIERS: Encounter type: initial encounter Qualified Code(s): W19.XXXA - Unspecified fall, initial encounter (9) Uncontrolled type 2 diabetes mellitus with hyperglycemia: (10) B12 deficiency: (11) Obesity (BMI 30.0-34.9): PLAN: Plan 1. Sepsis with CT scan of abdomen and pelvis suggestive of Pyelonephritis with weakly positive UA for UTI; without hematuria along with viral assay positive for COVID 19 with Leukocytosis of 17.1 K and Left-shift of 1.3% with Lactic Acidosis of 5.3 mmol/L and blood pressure of 87/47 mmHg present on admission - Admit to ICU for treatment of the sepsis protocol. Continue empiric IV cefepime and IV vancomycin begun in the ER and await culture and sensitivity data. Serialize lactate. Give Tylenol prn for [id number] (level 1-5/10) pain or fever. Give morphine IV prn for severe (level 6-10/10) pain. 2. Severe Metabolic Acidosis of 7.24 mmol/L present on admission due to #1 and also suspected to be due to Adverse Drug Reaction to recently started metformin - Stop metformin and add to list of allergies to prevent recurrence. 3. VINNIE; with elevated serum creatinine of 2.09 mg/dL and BUN of 26 mg/dL present on admission (up from her baseline of 0.77 mg/dL April 06, 2024) complicating #1 & #2 - Aggressively volume resuscitate and recheck renal indices daily to follow trend. Check UA C&S to evaluate for muddy brown casts indicative of ATN from hypotension and possible infection. 4. Dizziness with Fall just prior to admission attributable to severe hypotension arising from #1 - #3 - CT scans of the head and neck were negative for acute pathologic changes. PT/OT and case management consult and treat on- rounds in a.m. for further recommendations with help appreciated in advance. Otherwise, treat supportively and monitor for improvement. 5. DM-2; uncontrolled with hyperglycemia of 321 mg/dL present on admission and hemoglobin A1c of 12.8% on April 05, 2024 adding to the pathology outlined from #1 - #4 - Keep NPO for now. FSBS q. 6 hours plus lowest intensity SSI. 6. Recently diagnosed B12 deficiency with level of 146 pg/mL on April 05, 2024 adding to the burden of disease outlined from #1 - #5 - Give cyanocobalamin IM daily. 7. Recently diagnosed paronychia with no current signs of infection after course of oral clindamycin - Noted. 8. Obesity; with a BMI of 33.3 this admission adding to the medical complexity of #1 - #7 - Weight loss will be recommended. Check TSH. This complicates her case and may hamper recovery. 9. Tobacco abuse - Tobacco cessation will be strongly encouraged with Nicotine patch offered to control cravings. 10. DVT/GI prophylaxis - Heparin 5,000U sq TID. Protonix 40 mg IV daily. Total time: Approximately (but not less than) 75 minutes. Sepsis Attestation Sepsis Alert: Yes Sepsis Attestation: Agree w/Sepsis Date exam was performed: 04/19/24 Time exam was performed: 01:00 Possible Source of Sepsis: Unknown Sepsis Organ Dysfunction Criteria Present: SBP < 90 mmHg or MAP < 65 mmHg, Creatinine > 2.0 mg/dL and Lactic Acid > 2 mmol/L Fluid Resuscitation Fluid resuscitation indicated?: Yes Fluid Resuscitation ordered: 30 ml/kg fluid bolus ordered Amount of fluid ordered: 2 Sepsis Note Date exam was performed: 04/19/24 Time exam was performed: 05:00 Sepsis Attestation: Sepsis re-evaluation was performed Response to fluids: Fluid responsive hypotension Charges/Coding Visit Charges Inpatient E&M: 16084 Init Hosp L3
[2024-04-19] MEDS: Vancomycin HCl 1,500 MG in 0.9% Normal Saline (500mL Bag) 500 ML 250 MG IV (00:22)
[2024-04-19 00:49] LABS: Bacteria 0 SEEN /hpf (None Seen); Mucous, Urine 0 SEEN /hpf (<or=2+); Red Blood Cells-Urine 0 SEEN /hpf (0-5)
[2024-04-19 00:52] LABS: Color, Urine Yellow (Yellow); Glucose, Dipstick 50 mg/dl (Normal); Ketone-Dipstick Negative (Negative); Leukocyte Esterase-Dipstick 25 /ul (Negative); Nitrite-Dipstick Negative (Negative); Occult Blood-Urine Negative /ul (Negative); Protein-Dipstick 30 mg/dl (Negative); Urine Clarity Sl. Cloudy (Clear); Urine Urobilinogen 1 mg/dl (Normal)
[2024-04-19 00:57] LABS: Urine Bilirubin Dipstick 3 mg/dL (Negative)
[2024-04-19 01:14] LABS: Fine Granular Cast- Urine 0-5 SEEN /lpf (0-5); Squamous Epithelial Cells - UA 0-5 SEEN /hpf (5-10); White Blood Cells 5-10 SEEN /hpf (0-5)
[2024-04-19] MEDS: 0.9% Normal Saline (1000mL) 1,000 ML 999 ML IV (01:31)
[2024-04-19 01:53] LABS: Reflex Lactate? Y
[2024-04-19 02:44] LABS: CPK Total, Creatine Kinase 68 U/L (26-192); Troponin-I HS 6 pg/mL (3.0-54.0)
[2024-04-19 02:54] LABS: Lactic Acid 4.1 mmol/L (0.4-1.9)
[2024-04-19 03:03] LABS: Allen Test Positive; Base Excess -10 mmol/L (-2 to +2); Bicarbonate 16.2 mmol/L (22-26); Blood Gas Specimen Type ART; Mode Not entered; O2 Delivery Device Room Air; PO2 111 mmHG (75-100); SITE L Brach; SO2 98 % (95-99); Total Carbon Dioxide 17 mmol/L; pCO2 30.3 mmHg (35-45); pH 7.34 (7.35-7.45)
[2024-04-19] MEDS: 0.9% Normal Saline (1000mL) 1,000 ML 150 ML IV ×2 (03:30→10:10)
--- NOTE | 2024-04-19 03:47 | PCM.RX.CS ---
Consult Antibiotic Management Pharmacy has been consulted to manage selected antibiotic: Vancomycin Type of Intervention Type of Consult: New start Labs Labs: Sodium 135 mmol/L (136-145) L 04/18/24 21:39 Potassium 5.3 mmol/L (3.5-5.1) H 04/18/24 21:39 Chloride 101 mmol/L (98-107) 04/18/24 21:39 Carbon Dioxide 22.0 mmol/L (21.0-32.0) 04/18/24 21:39 Anion Gap 12 (5-15) 04/18/24 21:39 BUN 26 mg/dL (7-18) H 04/18/24 21:39 Creatinine 2.09 mg/dL (0.55-1.02) H 04/18/24 21:39 Est GFR (MDRD) Af Amer 31 mL/min (>60) L 04/18/24 21:39 Est GFR (MDRD) Non-Af 26 mL/min (>60) L 04/18/24 21:39 BUN/Creatinine Ratio 12.4 RATIO (10-20) 04/18/24 21:39 Glucose 321 mg/dL (74-106) H 04/18/24 21:39 Microbiology Microbiology: Microbiology 04/18/24 21:39 Mucosa - Nose SARS-CoV-2, Influenza & RSV (PCR) - Final Dosing Weight Weight used for dosin.2 kg Estimated Creatinine Clearance Estimated Creatinine Clearance: 32.2 Goal Trough Goal Trough: 15-20 mcg/mL Pharmacy Plan for Drug Dosing Pharmacy Plan for Drug Dosing: Pharmacy Service will continue to monitor and adjust dosing as required. 1500MG GIVEN IN ER 04/19 @ 0022. START 1500MG Q24H AND FOLLOW UP TROUGH PRIOR TO 3RD DOSE Follow-Up Labs Follow-Up Labs: Trough: Vancomycin Date/Time Labs Ordered Labs to be done on [date and time ordered]: 04/21 @ 0000
[2024-04-19] MEDS: Heparin Injection (Vial) 5,000 UNIT/ML VIAL 5000 UNIT SC ×3 (05:44→21:30)
[2024-04-19] MEDS: Insulin Lispro 100 UNIT/ML INSULN.PEN SC ×4 (05:44→23:24)
[2024-04-19] MEDS: Acetaminophen 325 MG Tablet 650 MG PO ×3 (05:45→19:56)
[2024-04-19 05:57] LABS: Bedside Glucose 189 mg/dL (74-106)
[2024-04-19] MEDS: Gabapentin 600 MG Tablet PO ×4 (07:09→21:30)
[2024-04-19] MEDS: Morphine 2 MG/ML Syringe IV ×2 (07:40→21:41)
[2024-04-19 09:11] LABS: Absolute Lymphocyte Count 0.36 X10^3/uL (0.83-4.51); Absolute Neutrophil Count 9.8 X10^3/uL (2.0-7.7); Basophil# 0.02 X10^3/uL; Basophil% 0.2 % (0-1); Eosinophil# 0.13 X10^3/uL; Eosinophils% 1.2 % (0-5); Hematocrit 34.3 % (37-47); Hemoglobin 11.1 g/dL (12.0-15.0); Lymphocyte # 0.36 X10^3/ul (0.83-4.51); Lymphocyte % 3.3 % (19-41); Mean Corp Hgb Conc 32.4 g/dL (32-36); Mean Corpuscular Hgb 29.2 pg (27.0-32.0); Mean Corpuscular Volume 90.3 fL (81-99); Mean Platelet Vol. 10.3 fl (6.2-12.0); Monocyte# 0.59 X10^3/uL; Monocyte% 5.4 % (0-10); NRBC Flagged by Analyzer 0 % (0-5); Neutrophil # 9.79 X10^3/uL (2.7-7.7); Neutrophil % 89.4 % (47-70); POSITIVE DIFFERENTIAL YES; Platelet Count 215 K/mm3 (150-450)
[2024-04-19 09:40] LABS: ALB/GLOB Ratio 0.9 RATIO (0.9-2.4); AST(SGOT) 21 U/L (15-37); Alanine Aminotransfer ALT/SGPT 29 U/L (13-56); Albumin, Serum 2.6 g/dL (3.2-5.0); Alkaline Phosphatase 51 U/L (45-117); Anion Gap 7 (5-15); BUN 28 mg/dL (7-18); BUN/Creat Ratio 18.4 RATIO (10-20); Calcium,Total 7.6 mg/dL (8.5-10.1); Chloride 110 mmol/L (98-107); Creatinine, Serum 1.52 mg/dL (0.55-1.02); EST Glomerular Filtration Rate 37 mL/min (>60); Est Glom Filt Rate - Afr Amer 45 mL/min (>60); Estimated Creatinine Clearance 44.27 ml/min; Globulin 2.9 g/dL (2.2-4.2); Glucose 178 mg/dL (74-106); Potassium 4.6 mmol/L (3.5-5.1); Protein, Total 5.5 g/dL (6.4-8.2); Sodium Level 138 mmol/L (136-145)
--- NOTE | 2024-04-19 09:41 | CASEMGMT ---
Addendum entered by Kj Peters 04/19/24 22:33: 1630: JO ALCANTARA to room. Pt resting in bed. Daughter, Anastacia, @ bedside. Introduced self and role. Discussed readmission and discharge planning. Pt did get atb after last admission and took as prescribed. She also took metformin as prescribed. Per Dr Jackson, he plans to stop metformin @ discharge this admission. Pt made aware and advised to review discharge orders closely @ discharge for changes in PO medications and insulin. Pt states she did not get the OTC insulin from [facility] after last admission. She states she went to the counter, they did not know what to give her, she got frustrated and left. Dtr inquired about getting OTC insulin from [facility] instead of [facility]. Call placed to [facility]. Per pharmacist, they do carry OTC insulin vials, but states [id number] cost is ~ $120. Dtr states she will plan to go to [facility] pharmacy to case picker insulin and syringes. Pt and dtr made aware Dr Jackson plans to send pt home w/Rx's for insulin and also for insulin syringes that they can take into [facility] pharmacy so [facility] knows what to provide to her from OTC. They voice appreciation. Dtr states she plans to get more involved w/pt's care and w/helping her, as she recognizes that pt is not managing things well @ home on her own. Discussed CCN. Both pt and dtr interested in referral. Order placed. They were also provided w/CCN rac card w/contact info. Pt has appt @ [facility] w/Mickey BAKER (as scheduled during index admission) on 04/25 @ 10 AM. Pt states she has appt w/Dr Norwood 04/24. She does not remember time of appt, but states this is written down @ home. These appts were added to pt's discharge plan. Pt and daughter deny having further discharge needs/concerns and thanked JO ALCANTARA for assistance/information. Alyssia OSORIO, aware of need for DM and insulin admin education. Original Note: JO ALCANTARA readmission note: Index admission: Admit 04/06 w/dehydration and hypotension. COVID +, HgbA1c was 12.8, discharged home 04/07 w/resumption of metformin and to start insulin. Pt also rt 3rd figner paronychia. ID followed. D/C'd home on PO atb. SW met w/pt during admission d/t patient having no insurance and resources provided. See RUTH note 04/05. See JO Ahuja CM, notes 04/07. Pt to case picker insulin OTC and syringes @ [facility] and stated could afford PO Atb as well and stated had glucophage @ home already. Appt scheduled @ [facility] for 04/25 @ 10 AM. Current admission: Admit 04/19 w/sepsis, COVID +, VINNIE and suspected adverse drug reaction d/t metformin-induced lactic acidosis. Pt also w/pyelonephritis, suspected to be the cause of sepsis w/septic shock. Marky TAN RN CM
[2024-04-19] MEDS: Pantoprazole Sodium 40 MG in 0.9% Normal Saline (100mL MB+) 100 ML 330 MG IV (09:46)
[2024-04-19] MEDS: Lactobacillis Acidophilus 1 CAP PO ×4 (09:49→21:31)
[2024-04-19] MEDS: Cyanocobalamin (B12) 1,000 MCG/ML Vial 1000 MCG IM (09:51)
[2024-04-19] MEDS: Cefepime HCl 1 GM in 0.9% Normal Saline (50mL MB+) 50 ML IV ×2 (10:10→21:31)
--- NOTE | 2024-04-19 10:35 | RAD_ITS ---
INDICATION: pain swelling EXAMINATION/TECHNIQUE: X-RAY - RIGHT XR Hand Min 3 Views 3 VIEWS COMPARISON: No relevant prior comparison study available FINDINGS: SOFT TISSUES: No soft tissue swelling or gas. No radiopaque foreign body. BONES/JOINTS: No acute fracture or subluxation.. Normal alignment. Preservation of the joint space.. Cystic changes in the scaphoid and lunate. RAD/Hand Min 3 Views IMPRESSION: No evidence of acute osseous changes. Electronically Signed: Parker Morales MD at 12:31 EST ,
[2024-04-19 11:38] LABS: Bedside Glucose 188 mg/dL (74-106)
--- NOTE | 2024-04-19 13:43 | CON.PCM.CC_ITS ---
HPI Consult Data Date of Consult: 04/19/24 HPI Narrative HPI Narrative: NORTH CEE, is a 63 F who presents [facility] Medical History Hyperlipemia HTN (hypertension) Diabetes type 2, controlled Home Medications ?Medication ?Instructions ?Recorded ?Last Taken ?Type amitriptyline 10 mg tablet 10 mg PO QHS depression 04/04/24 Unknown History gabapentin 600 mg tablet 600 mg PO 4X/DAY neuropathy 04/04/24 Unknown History rosuvastatin 20 mg tablet 20 mg PO QHS cholesterol 04/04/24 Unknown History metformin 1,000 mg tablet 1,000 mg PO BID diabetes 90 days 04/07/24 Unknown Rx #180 tabs Allergy/AdvReac Type Severity Reaction Status Date / Time acetaminophen (From Percocet) AdvReac Vomiting Verified 04/18/24 20:57 oxycodone (From Percocet) AdvReac Vomiting Verified 04/18/24 20:57 Penicillins AdvReac Other Verified 04/18/24 20:57 Social History Smoking Status: Current every day smoker tobacco type: cigarettes Objective Data Objective Data Vital Signs: Vital Signs Last response 3 Temperature 37.1 C 04/19/24 10:00 Temperature Source Oral 04/19/24 10:00 Pulse Rate 102 H 04/19/24 13:00 Respiratory Rate 19 H 04/19/24 13:00 Respiratory Effort Normal, Non-Labored 04/19/24 08:10 Respiratory Depth Normal 04/19/24 08:10 Respiratory Pattern Normal 04/19/24 08:10 Blood Pressure 101/56 L 04/19/24 13:00 Blood Pressure Mean 71 04/19/24 13:00 Blood Pressure Source Monitor 04/19/24 13:00 Blood Pressure Position Semi-Fowlers 04/19/24 13:00 Blood Pressure Location Left Arm 04/19/24 13:00 Pulse Ox 96 04/19/24 13:00 Oxygen Delivery Method Room Air 04/19/24 13:00 Oxygen Flow Rate (L/min) 2 04/19/24 06:50 I&O: I&O Last 24 Hours 3 04/18/24 04/19/24 04/19/24 23:59 11:59 23:59 Intake Total 5375 / 5375 Output Total 750 / 750 Balance 4625 / 4625 I&O: Total Stay 3 04/18/24 20:56 thru 04/19/24 11:53 Intake Total 5375 Output Total 750 Balance 4625 Current Meds Ordered / Administered: Current meds ordered / Administered 3 Generic Name Dose Route Start Last Admin Trade Name Freq PRN Reason Stop Dose Admin Acetaminophen 650 mg 04/19/24 03:13 04/19/24 05:45 Acetaminophen 325 Mg Tablet PO 650 mg Q6H PRN PRN Administration Pain 1-5/10 or Fever Amitriptyline HCl 10 mg 04/19/24 22:00 Amitriptyline 10 Mg Tablet PO QHS JEFF Atorvastatin Calcium 40 mg 04/19/24 22:00 Atorvastatin Calcium 40 Mg Tablet PO QHS JEFF Cyanocobalamin 1,000 mcg 04/19/24 10:00 04/19/24 09:51 Cyanocobalamin (B12) 1,000 Mcg/Ml Vial IM 1,000 mcg DAILY JEFF Administration Gabapentin 600 mg 04/19/24 10:00 04/19/24 11:07 Gabapentin 600 Mg Tablet PO Not Given 4X/DAY JEFF Glucagon 1 mg 04/19/24 03:13 Glucagon 1 Mg/Ml Syringe IM X1 PRN Hypoglycemia Protocol Heparin Sodium (Porcine) 5,000 unit 04/19/24 06:00 04/19/24 05:44 Heparin Injection (Vial) 5,000 Unit/Ml Vial SC 5,000 unit TID JEFF Administration Sodium Chloride 1,000 mls @ 150 mls/hr 04/19/24 00:55 04/19/24 10:10 IV 04/19/24 14:14 150 mls/hr .Q6H40M JEFF Administration Protocol Pantoprazole Sodium 40 mg/ 110 mls @ 330 mls/hr 04/19/24 10:00 04/19/24 10:10 Sodium Chloride IV Infused DAILY JEFF Infusion Cefepime HCl 1 gm/ Sodium 50 mls @ 100 mls/hr 04/19/24 10:00 04/19/24 10:42 Chloride IV Infused Q12 JEFF Infusion Dextrose 250 mls @ 0 mls/hr 04/19/24 03:13 Dextrose 10%-Water IV .Q0M PRN HYPOGLYCEMIA Protocol As Directed Sodium Chloride 100 mls @ 15 mls/hr 04/19/24 03:17 IV .Q6H40M PRN Saline Flush Sodium Chloride 100 mls @ 15 mls/hr 04/19/24 03:17 IV .Q6H40M PRN Additional IVPB Infusion Insulin Human Lispro 0 unit 04/19/24 06:00 04/19/24 11:23 Insulin Lispro 100 Unit/Ml Insuln.Pen SC 1 u Q6 JEFF Administration Protocol Morphine Sulfate 2 mg 04/19/24 03:13 04/19/24 07:40 Morphine 2 Mg/Ml Syringe IV 2 mg Q4H PRN PRN Administration Pain Score 6-10 Nicotine 14 mg 04/19/24 10:00 04/19/24 09:49 Nicotine 14 Mg Patch TD Not Given DAILY JEFF Sodium Chloride 10 - 40 ml 04/19/24 03:17 0.9% Saline Lock 10 Ml Syringe IV UD PRN SALINE FLUSH Lab / Micro Data 04/19/24 08:45 04/19/24 08:45 Labs: Laboratory Results - last 24 hr 04/18/24 21:39: WBC 17.1 H, RBC 4.63, Hgb 13.5, Hct 41.3, MCV 89.2, MCH 29.2, MCHC 32.7, RDW Std Deviation 42.3, RDW Coeff of Kristi 12.9, Plt Count 266, MPV 10.3, Immature Gran % (Auto) 1.300 H, Neut % (Auto) 93.5 H, Lymph % (Auto) 1.0 L , [place] % (Auto) 3.5, Eos % (Auto) 0.5, Baso % (Auto) 0.2, Absolute Neuts (auto) 16.0 H, Absolute Lymphs (auto) 0.17 L, Nucleated RBC % 0, PT 12.9, INR 1.0, APTT 28.3, Sodium 135 L, Potassium 5.3 H, Chloride 101, Carbon Dioxide 22.0, Anion Gap 12, BUN 26 H, Creatinine 2.09 H, Est GFR (MDRD) Af Amer 31 L, Est GFR (MDRD) Non-Af 26 L, BUN/Creatinine Ratio 12.4, Glucose 321 H, Lactic Acid 5.3 H*, Calcium 9.1, Total Bilirubin 0.70, AST 23, ALT 34, Alkaline Phosphatase 71, Total Creatine Kinase 68, Troponin I High Sens 6, Total Protein 6.7, Albumin 3.4, Globulin 3.3, Albumin/Globulin Ratio 1.0, TSH 1.280, Acetone Level NEGATIVE 04/19/24 00:10: Urine Color Yellow, Urine Clarity Sl. Cloudy, Urine pH 6.0, Ur Specific [place] 1.020, Urine Protein 30 H, Urine Glucose (UA) 50 H, Urine Ketones Negative, Urine Occult Blood Negative, Urine Nitrite Negative, Urine Bilirubin 3 H, Urine Urobilinogen 1 H, Ur Leukocyte Esterase 25 H, Urine RBC 0 SEEN, Urine WBC 5-10 SEEN, Ur Squamous Epith Cells 0-5 SEEN, Urine Bacteria 0 SEEN, Fine Granular Casts 0-5 SEEN, Urine Mucus 0 SEEN 04/19/24 02:02: Lactic Acid 4.1 H* 04/19/24 03:21: POC Glucose 189 H 04/19/24 08:45: WBC 11.0, RBC 3.80 L, Hgb 11.1 L, Hct 34.3 L, MCV 90.3, MCH 29.2, MCHC 32.4, RDW Std Deviation 43.0, RDW Coeff of Kristi 13.0, Plt Count 215, MPV 10.3, Immature Gran % (Auto) 0.500, Neut % (Auto) 89.4 H, Lymph % (Auto) 3.3 L, [place] % (Auto) 5.4, Eos % (Auto) 1.2, Baso % (Auto) 0.2, Absolute Neuts (auto) 9.8 H, Absolute Lymphs (auto) 0.36 L, Nucleated RBC % 0, Sodium 138, Potassium 4.6, Chloride 110 H, Carbon Dioxide 20.0 L, Anion Gap 7, BUN 28 H, Creatinine 1.52 H, Estim Creat Clear Calc 44.27, Est GFR (MDRD) Af Amer 45 L, Est GFR (MDRD) Non-Af 37 L, BUN/Creatinine Ratio 18.4, Glucose 178 H, Calcium 7.6 L, Total Bilirubin 0.60, AST 21, ALT 29, Alkaline Phosphatase 51, Total Protein 5.5 L, Albumin 2.6 L, Globulin 2.9, Albumin/Globulin Ratio 0.9 04/19/24 11:20: POC Glucose 188 H Micro: Microbiology 04/18/24 21:39 Mucosa - Nose SARS-CoV-2, Influenza & RSV (PCR) - Final ABG Data ABG results: ABG 04/18/24 04/19/24 21:56 02:56 Specimen Type GLADIS ART Sample Site Not entered L Brach pH 7.34 L Bicarbonate Actual 16.2 L Total CO2 17 Base Excess -10 L O2 Saturation 98 O2 % 21.0 ABG pCO2 30.3 L ABG pO2 111 H Mohsen Test Positive VBG pH 7.26 L VBG pO2 41 H VBG HCO3 18 L VBG Total CO2 20 L VBG O2 Sat (Calc) 68 VBG Base Excess -9 L POC Mix VBG pCO2 Pt Tmp 41.3 O2 Delivery Device Not entered Room Air Vent Mode Not entered Imaging Radiology Impression Brain CT 04/18/24 21:25 IMPRESSION: Negative head/brain CT without intravenous contrast. AIDOC was utilized to assist in identifying pertinent positive findings Electronically Signed: Clinton Blum MD at 23:48 EST Reading Location ID and State: [employer] / [employer] , Service support , Cervical Spine CT 04/18/24 21:25 IMPRESSION: No evidence of acute cervical spinal fracture or spondylolisthesis. Electronically Signed: Clinton Blum MD at 23:57 EST Reading Location ID and State: [employer] / [place] [employer] , Service support , Chest X-Ray 04/18/24 22:00 IMPRESSION: No radiographic evidence of acute cardiopulmonary disease. Electronically Signed: Clinton Blum MD at 22:52 EST , Abdomen/Pelvis CT 04/19/24 00:23 IMPRESSION: Symmetric stranding about both kidneys raises the possibility of renal infection. Ancillary findings as above. Electronically Signed: Clinton Blum MD at 2:20 EST Reading Location ID and State: [email or web address] / [place] [employer] , Service support , Hand X-Ray 04/19/24 10:35 IMPRESSION: No evidence of acute osseous changes. Electronically Signed: Parker Morales MD at 12:31 EST , Assessment and Plan . Assessment and plan: Chart and data reviewed d/w staff on the unit Admitted w/ fever and suspected sepsis syndrome Imaging reviewed CX NGTD Co-V PCR is (+) I would probably not give steroids Could consider anti-virals She has TX from ICU to PCU
--- NOTE | 2024-04-19 13:55 | PN.HOSP_ITS ---
Reason for Visit Reason for Visit: Diagnoses Sepsis, unspecified organism (04/19/24) Type 2 diabetes mellitus with hyperglycemia (04/19/24) Deficiency of other specified B group vitamins (04/19/24) Obesity, class 1 (04/19/24) Acidosis, unspecified (04/19/24) Tubulo-interstitial nephritis, not specified as acute or chronic (04/19/24) Acute kidney failure, unspecified (04/19/24) Dizziness and giddiness (04/19/24) Severe sepsis with septic shock (04/19/24) Adverse effect of unspecified drugs, medicaments and biological substances, initial encounter (04/19/24) COVID-19 (04/19/24) Unspecified fall, initial encounter (04/19/24) Subjective Subjective Patient was seen and examined today, vital signs appear stable, she is on room air. White blood cell count today was 11, creatinine was 1.52 and BUN was 28. Patient's blood sugar this morning was 178. Patient appears stable at this time for transfer to PCU, I have elected to stop her vancomycin and keep her on cefepime Objective Data Objective Data Vital Signs: Vital Signs Temp Pulse Resp BP Pulse Ox O2 Del Method O2 Flow Rate 98.7 F 102 H 19 H 101/56 L 96 Room Air 2 04/19/24 10:00 04/19/24 13:00 04/19/24 13:00 04/19/24 13:00 04/19/24 13:00 04/19/24 13:00 04/19/24 06:50 Oxygen Flow Rate (L/min) 2 Oxygen Delivery Method Room Air Weight: 97.2 kg Body Mass Index (BMI) 35.6 Intake & Output: Intake and Output for Last 24 Hours 04/17/24 04/18/24 04/19/24 23:59 23:59 23:59 Intake Total 5375 / 5375 Output Total 750 / 750 Balance 4625 / 4625 Lab / Micro Data 04/19/24 08:45 04/19/24 08:45 Labs: Laboratory Results - last 24 hr 04/18/24 21:39: WBC 17.1 H, RBC 4.63, Hgb 13.5, Hct 41.3, MCV 89.2, MCH 29.2, MCHC 32.7, RDW Std Deviation 42.3, RDW Coeff of Kristi 12.9, Plt Count 266, MPV 10.3, Immature Gran % (Auto) 1.300 H, Neut % (Auto) 93.5 H, Lymph % (Auto) 1.0 L , [place] % (Auto) 3.5, Eos % (Auto) 0.5, Baso % (Auto) 0.2, Absolute Neuts (auto) 16.0 H, Absolute Lymphs (auto) 0.17 L, Nucleated RBC % 0, PT 12.9, INR 1.0, APTT 28.3, Sodium 135 L, Potassium 5.3 H, Chloride 101, Carbon Dioxide 22.0, Anion Gap 12, BUN 26 H, Creatinine 2.09 H, Est GFR (MDRD) Af Amer 31 L, Est GFR (MDRD) Non-Af 26 L, BUN/Creatinine Ratio 12.4, Glucose 321 H, Lactic Acid 5.3 H*, Calcium 9.1, Total Bilirubin 0.70, AST 23, ALT 34, Alkaline Phosphatase 71, Total Creatine Kinase 68, Troponin I High Sens 6, Total Protein 6.7, Albumin 3.4, Globulin 3.3, Albumin/Globulin Ratio 1.0, TSH 1.280, Acetone Level NEGATIVE 04/19/24 00:10: Urine Color Yellow, Urine Clarity Sl. Cloudy, Urine pH 6.0, Ur Specific [place] 1.020, Urine Protein 30 H, Urine Glucose (UA) 50 H, Urine Ketones Negative, Urine Occult Blood Negative, Urine Nitrite Negative, Urine Bilirubin 3 H, Urine Urobilinogen 1 H, Ur Leukocyte Esterase 25 H, Urine RBC 0 SEEN, Urine WBC 5-10 SEEN, Ur Squamous Epith Cells 0-5 SEEN, Urine Bacteria 0 SEEN, Fine Granular Casts 0-5 SEEN, Urine Mucus 0 SEEN 04/19/24 02:02: Lactic Acid 4.1 H* 04/19/24 03:21: POC Glucose 189 H 04/19/24 08:45: WBC 11.0, RBC 3.80 L, Hgb 11.1 L, Hct 34.3 L, MCV 90.3, MCH 29.2, MCHC 32.4, RDW Std Deviation 43.0, RDW Coeff of Kristi 13.0, Plt Count 215, MPV 10.3, Immature Gran % (Auto) 0.500, Neut % (Auto) 89.4 H, Lymph % (Auto) 3.3 L, [place] % (Auto) 5.4, Eos % (Auto) 1.2, Baso % (Auto) 0.2, Absolute Neuts (auto) 9.8 H, Absolute Lymphs (auto) 0.36 L, Nucleated RBC % 0, Sodium 138, Potassium 4.6, Chloride 110 H, Carbon Dioxide 20.0 L, Anion Gap 7, BUN 28 H, Creatinine 1.52 H, Estim Creat Clear Calc 44.27, Est GFR (MDRD) Af Amer 45 L, Est GFR (MDRD) Non-Af 37 L, BUN/Creatinine Ratio 18.4, Glucose 178 H, Calcium 7.6 L, Total Bilirubin 0.60, AST 21, ALT 29, Alkaline Phosphatase 51, Total Protein 5.5 L, Albumin 2.6 L, Globulin 2.9, Albumin/Globulin Ratio 0.9 04/19/24 11:20: POC Glucose 188 H Micro: Microbiology 04/18/24 21:39 Mucosa - Nose SARS-CoV-2, Influenza & RSV (PCR) - Final ABG Data ABG results: ABG 04/18/24 04/19/24 21:56 02:56 Specimen Type GLADIS ART Sample Site Not entered L Brach pH 7.34 L Bicarbonate Actual 16.2 L Total CO2 17 Base Excess -10 L O2 Saturation 98 O2 % 21.0 ABG pCO2 30.3 L ABG pO2 111 H Omhsen Test Positive VBG pH 7.26 L VBG pO2 41 H VBG HCO3 18 L VBG Total CO2 20 L VBG O2 Sat (Calc) 68 VBG Base Excess -9 L POC Mix VBG pCO2 Pt Tmp 41.3 O2 Delivery Device Not entered Room Air Vent Mode Not entered Radiography Diagnostic Testing: Radiology Impression Brain CT 04/18/24 21:25 IMPRESSION: Negative head/brain CT without intravenous contrast. AIDOC was utilized to assist in identifying pertinent positive findings Electronically Signed: Clinton Blum MD at 23:48 EST , Cervical Spine CT 04/18/24 21:25 IMPRESSION: No evidence of acute cervical spinal fracture or spondylolisthesis. Electronically Signed: Clinton Blum MD at 23:57 EST , Chest X-Ray 04/18/24 22:00 IMPRESSION: No radiographic evidence of acute cardiopulmonary disease. Electronically Signed: Clinton Blum MD at 22:52 EST , Abdomen/Pelvis CT 04/19/24 00:23 IMPRESSION: Symmetric stranding about both kidneys raises the possibility of renal infection. Ancillary findings as above. Electronically Signed: Clinton Blum MD at 2:20 EST , Hand X-Ray 04/19/24 10:35 IMPRESSION: No evidence of acute osseous changes. Electronically Signed: Parker oMrales MD at 12:31 EST , Physical Exam Const alert, oriented x3 and no apparent distress General Appearance: cooperative, well kempt and well developed Orientation / Consciousness: awake, oriented to person, oriented to place and oriented to time HEENT normocephalic, head/scalp atraumatic and moist oral mucous membranes Eyes PERRL, EOMs intact bilaterally and conjunctivae normal Neck supple, no JVD, thyroid normal and no carotid bruits General: trachea midline Resp normal respiratory effort, no retractions, no use of accessory muscles and clear to auscultation bilaterally Auscultation: Negative for rales, rhonchi or wheezes Cardio regular rate, regular rhythm, S1 normal heart sound, S2 normal heart sound, no rub and no gallops GI normal to inspection, nondistended, normoactive bowel sounds, soft to palpation, non-tender and non-distended Extremity no clubbing, cyanosis or edema Skin no rashes or lesions noted General Skin Exam: no breakdown Neuro oriented x3, CN's II-XII intact bilaterally, moves all extremities, no focal motor deficits and no sensory deficits noted Sensorium / Orientation: awake and alert Speech: speech normal Psych affect normal Assessment & Plan Assessment/Plan (1) Pyelonephritis: PLAN: Plan 1. Sepsis-secondary to pyelonephritis, continue cefepime, patient appears stable for transfer to the floor for further care #2 type 2 diabetes-I will place the patient on Humulin N insulin twice a day as a basal insulin, she can obtain this [id number] when she is discharged #3 acute kidney injury-creatinine is improved, recheck labs tomorrow #4 hyperlipidemia-patient is on rosuvastatin Total clinical time spent by myself addressing the patient's medical issues, reviewing all of her data, and collaborating with patient's care team: 35- minutes
--- NOTE | 2024-04-19 14:24 | CASEMGMT ---
Social Work- RUTH met with pt and pt dtr to discuss preferences at d/c, as well self-pay status. Pt and dtr report that they have not heard anything back on SANDEEP status. RUTH emailed Mam[facility], [facility] [employer], to request follow up while pt is admitted. Pt reports that she has an endocrinology appointment on 04/[address] Norwood. Pt reports that she does not need additional resources for self pay at this time. Pt reports that she had been using the pre-filled syringes that [facility] provided. Pt reports that she went to [facility] and they did not know what pt was asking for when she asked for the insulin you do yourself. Pt reports that she became frustrated and left. Pt dtr reports that she uses [facility], as she has had issues with [facility] as well and asked if it would be possible for pt to get insulin there. RUTH advised that RNCM will be notified of request. Pt is open to [facility] or whatever recommendations are made at d/c. Pt lives with dtr and previously was independent with ADLs and IADLs including driving. RUTH de la torre remain available to follow for any discharge needs. QIANA Lozano
[2024-04-19] MEDS: Insulin NPH Human 100 UNITS/ML PEN 15 UNITS SC (18:06)
[2024-04-19 18:09] LABS: Bedside Glucose 165 mg/dL (74-106)
[2024-04-19] MEDS: Ipratropium/Albuterol Sulfate 3 ML AMPUL.NEB INHALATION (18:41)
[2024-04-19] MEDS: Atorvastatin Calcium 40 MG Tablet PO (21:30)
[2024-04-19] MEDS: Amitriptyline 10 MG Tablet PO (21:30)
[2024-04-19 23:43] LABS: Bedside Glucose 184 mg/dL (74-106)
[2024-04-20] VITALS (11 sets, daily range): BP systolic 94–135; BP diastolic 54–59; PULSE 87–107; RESP 16–24; TEMP 37–38.7; O2SAT 2–98; BMI 37.3
[2024-04-20 01:10] LABS: Bedside Glucose 168 mg/dL (74-106)
[2024-04-20] MEDS: Acetaminophen 325 MG Tablet 650 MG PO (02:17)
[2024-04-20] MEDS: Morphine 2 MG/ML Syringe IV (04:05)
[2024-04-20] MEDS: 0.9% Saline Lock 10 ML Syringe IV ×3 (04:05→08:51)
[2024-04-20] MEDS: Heparin Injection (Vial) 5,000 UNIT/ML VIAL 5000 UNIT SC (05:28)
[2024-04-20 05:48] LABS: Bedside Glucose 131 mg/dL (74-106)
[2024-04-20 06:34] LABS: Absolute Lymphocyte Count 0.92 X10^3/uL (0.83-4.51); Absolute Neutrophil Count 3.9 X10^3/uL (2.0-7.7); Basophil# 0.01 X10^3/uL; Basophil% 0.2 % (0-1); Eosinophil# 0.12 X10^3/uL; Eosinophils% 2.2 % (0-5); Hemoglobin 10.6 g/dL (12.0-15.0); Lymphocyte # 0.92 X10^3/ul (0.83-4.51); Lymphocyte % 17.1 % (19-41); Mean Corp Hgb Conc 32.1 g/dL (32-36); Mean Corpuscular Hgb 29.4 pg (27.0-32.0); Mean Corpuscular Volume 91.4 fL (81-99); Mean Platelet Vol. 10.6 fl (6.2-12.0); Monocyte# 0.41 X10^3/uL; Monocyte% 7.6 % (0-10); NRBC Flagged by Analyzer 0 % (0-5); Neutrophil # 3.89 X10^3/uL (2.7-7.7); Neutrophil % 72.2 % (47-70); Platelet Count 172 K/mm3 (150-450); RBC Distribution Width CV 13.2 % (11.6-14.6); RBC Distribution Width SD 44.3 fl (35.1-43.9); Red Blood Count 3.61 M/mm3 (4.2-5.4); White Blood Count 5.4 K/mm3 (4.4-11.0)
[2024-04-20 07:08] LABS: AST(SGOT) 19 U/L (15-37); Alanine Aminotransfer ALT/SGPT 27 U/L (13-56); Albumin, Serum 2.7 g/dL (3.2-5.0); Alkaline Phosphatase 46 U/L (45-117); Anion Gap 3 (5-15); BUN 24 mg/dL (7-18); BUN/Creat Ratio 23.1 RATIO (10-20); Calcium,Total 8.1 mg/dL (8.5-10.1); Chloride 112 mmol/L (98-107); Creatinine, Serum 1.04 mg/dL (0.55-1.02); EST Glomerular Filtration Rate 57 mL/min (>60); Est Glom Filt Rate - Afr Amer 69 mL/min (>60); Estimated Creatinine Clearance 66.34 ml/min; Globulin 2.8 g/dL (2.2-4.2); Glucose 139 mg/dL (74-106); Potassium 4.3 mmol/L (3.5-5.1); Protein, Total 5.5 g/dL (6.4-8.2); Sodium Level 137 mmol/L (136-145)
[2024-04-20] MEDS: Ipratropium/Albuterol Sulfate 3 ML AMPUL.NEB INHALATION ×2 (08:00→12:50)
[2024-04-20] MEDS: Insulin NPH Human 100 UNITS/ML PEN 15 UNITS SC (08:50)
[2024-04-20] MEDS: Lactobacillis Acidophilus 1 CAP PO ×2 (08:50→13:42)
[2024-04-20] MEDS: Cyanocobalamin (B12) 1,000 MCG/ML Vial 1000 MCG IM (08:51)
[2024-04-20] MEDS: Gabapentin 600 MG Tablet PO ×2 (08:51→13:42)
[2024-04-20] MEDS: Pantoprazole Sodium 40 MG in 0.9% Normal Saline (100mL MB+) 100 ML 330 MG IV (08:55)
[2024-04-20] MEDS: Cefepime HCl 1 GM in 0.9% Normal Saline (50mL MB+) 50 ML IV (09:34)
[2024-04-20 11:28] LABS: Bedside Glucose 176 mg/dL (74-106)
[2024-04-20] MEDS: Insulin Lispro 100 UNIT/ML INSULN.PEN SC (11:52)
--- NOTE | 2024-04-20 12:55 | DCINST_ITS ---
Discharge Instructions Diet Discharge Diet: 1800 Calorie Control Diet Dressing / Incision Discharge Activity: Return to Normal Activity Weight Bearing Status: Full weight bearing Follow Up Care Test Results: Test results from this visit will be discussed in further detail at your follow- up appointment, if applicable. Discharge Plan Admission Admit Date/Time: 04/19/24 00:42 Primary Reason for Your Visit: Sepsis, pyelonephritis, acute kidney injury Attending Provider: Bret Jackson Primary Care Provider: Anisa Evans Consulting Providers: Richard Johnson Discharge Orders/Prescriptions Prescriptions: No Action gabapentin 600 mg tablet 600 mg PO 4X/DAY amitriptyline 10 mg tablet 10 mg PO QHS rosuvastatin 20 mg tablet 20 mg PO QHS metformin 1,000 mg tablet 1,000 mg PO BID 90 Days Qty: 180 0RF Referrals / Follow Up: Esau Norwood MD [Med Staff - Courtesy Staff] - 04/24/24 (as previously scheduled by pt) Anisa Evans, RUBBER MILL OPERATOR-C [Primary Care Provider] - 04/25/24 10:00 am (As previously scheduled. This appt is @ [facility] )
--- NOTE | 2024-04-20 12:55 | PCM.DC ---
Discharge Instructions Diet Discharge Diet: 1800 Calorie Control Diet DC O2, CPAP, BIPAP needs Home O2 Discharge instructions: No Dressing / Incision Discharge Activity: Return to Normal Activity Weight Bearing Status: Full weight bearing Follow Up Care Test Results: Test results from this visit will be discussed in further detail at your follow-up appointment, if applicable. Discharge Plan Admission Admit Date/Time: 04/19/24 00:42 Primary Reason for Your Visit: Sepsis, pyelonephritis, acute kidney injury Attending Provider: Bret Jackson Primary Care Provider: Anisa Evans Consulting Providers: Richard Johnson Instructions Additional Instructions / Restrictions: A prescription for ReliOn and insulin has been sent into [facility] along with insulin syringes Discharge Orders/Prescriptions Prescriptions: New cephalexin 500 mg capsule 500 mg PO TID Qty: 21 0RF Continued gabapentin 600 mg tablet 600 mg PO 4X/DAY amitriptyline 10 mg tablet 10 mg PO QHS rosuvastatin 20 mg tablet 20 mg PO QHS Discontinued metformin 1,000 mg tablet 1,000 mg PO BID 90 Days Qty: 180 0RF Referrals / Follow Up: Esau Norwood MD [Med Staff - Courtesy Staff] - 04/24/24 (as previously scheduled by pt) Anisa Evans, EMERGENCY MEDICAL TECHNICIAN/DRIVER-C [Primary Care Provider] - 04/25/24 10:00 am (As previously scheduled. This appt is @ [facility] ) Disposition Disposition (needs filled in before D/C Order can be placed): Home, Self Care
--- NOTE | 2024-04-20 13:09 | DS.PCM_ITS ---
Providers Date of Admission: 04/19/24 Date of Discharge: 04/20/24 Primary Care Physician: RODRIGUE Quintero, NURSING STAFF DEVELOPMENT COORDINATOR-C Reason For Visit: SEPSIS, COVID +, VINNIE & SUSPECTED METFORMIN Diagnosis Discharge Diagnosis (1) Pyelonephritis: Status: Acute Code(s): N12 - Tubulo-interstitial nephritis, not specified as acute or chronic Plan 1. Sepsis-secondary to pyelonephritis, continue cefepime, patient appears stable for transfer to the floor for further care #2 type 2 diabetes-I will place the patient on Humulin N insulin twice a day as a basal insulin, she can obtain this [id number] when she is discharged #3 acute kidney injury-creatinine is improved, recheck labs tomorrow #4 hyperlipidemia-patient is on rosuvastatin Total clinical time spent by myself addressing the patient's medical issues, reviewing all of her data, and collaborating with patient's care team: 35- minutes Medications at Discharge Home Medications amitriptyline 10 mg tablet 10 mg PO QHS depression 04/04/24 gabapentin 600 mg tablet 600 mg PO 4X/DAY neuropathy 04/04/24 rosuvastatin 20 mg tablet 20 mg PO QHS cholesterol 04/04/24 cephalexin 500 mg capsule 500 mg PO TID #21 caps 04/20/24 Hospital Course Operations None Procedures None Summary of Care Provided Minutes Spent on Discharge: 31 Hospital Course: 63-year-old white female was seen in the emergency room at [facility] with complaints of lightheadedness and a fall at home. Patient did strike her head at home but denied loss of consciousness. CT of abdomen and pelvis was obtained which showed evidence of pyelonephritis, patient's white blood cell count was elevated 17.1 and lactic acid was 5.3 along with severe hypotension requiring fluid administration. The admitting hospitalist felt that her metformin was causing a lactic acidosis, this examiner did not feel that was the case. Creatinine was elevated at 2.09 and her blood sugar was 321. Patient was admitted to ICU and given IV antibiotics and fluids, her condition stabilized and she was moved to PCU for further care. Patient's creatinine improved, she was placed on Humulin and insulin for control of her type 2 diabetes. On 04/20/2024, patient was seen and examined: On examination she appeared in good health and spirits, she does not appear to be in any distress. Vital signs as documented. Skin warm and dry and without overt rashes. Neck without JVD, thyroid appears normal, trachea is midline, neck is supple. Lungs clear, normal air movement was noted. Heart exam notable for regular rhythm, normal sounds and absence of murmurs, rubs or gallops. Abdomen unremarkable and without evidence of organomegaly, masses, or abdominal aortic enlargement, bowel sounds are present in all 4 quadrants, no abdominal tenderness was noted. Extremities nonedematous, no cyanosis was noted, no clubbing was noted. Neuro: Cranial nerves II through XII are grossly intact, no focal motor deficits were noted, sensation to light touch and pinprick is intact, motor exam 5/5 throughout. Psych: Patient is alert and oriented x3, she does not appear anxious or depressed, she does not appear agitated. Patient appeared stable for discharge home on 04/20/2024 Weight / BMI Weight Weight: 101.8 kg Body Mass Index (BMI) 37.3 ABG / Lab / Microbiology Data 04/20/24 05:47 04/20/24 05:47 Laboratory: Laboratory Results - last 24 hr 04/19/24 05:42: POC Glucose 168 H 04/19/24 17:27: POC Glucose 165 H 04/19/24 23:22: POC Glucose 184 H 04/20/24 05:25: POC Glucose 131 H 04/20/24 05:47: WBC 5.4, RBC 3.61 L, Hgb 10.6 L, Hct 33.0 L, MCV 91.4, MCH 29.4, MCHC 32.1, RDW Std Deviation 44.3 H, RDW Coeff of Kristi 13.2, Plt Count 172, MPV 10.6, Immature Gran % (Auto) 0.700, Neut % (Auto) 72.2 H, Lymph % (Auto) 17.1 L, Shannon % (Auto) 7.6, Eos % (Auto) 2.2, Baso % (Auto) 0.2, Absolute Neuts (auto) 3.9, Absolute Lymphs (auto) 0.92, Nucleated RBC % 0, Sodium 137, Potassium 4.3, Chloride 112 H, Carbon Dioxide 22.0, Anion Gap 3 L, BUN 24 H, Creatinine 1.04 H, Estim Creat Clear Calc 66.34, Est GFR (MDRD) Af Amer 69, Est GFR (MDRD) Non-Af 57 L, BUN/Creatinine Ratio 23.1 H, Glucose 139 H, Calcium 8.1 L, Total Bilirubin 0.40, AST 19, ALT 27, Alkaline Phosphatase 46, Total Protein 5.5 L, Albumin 2.7 L, Globulin 2.8, Albumin/Globulin Ratio 1.0 04/20/24 11:05: POC Glucose 176 H Microbiology: Microbiology 04/19/24 00:10 Urine, Clean Catch Urine Culture - Preliminary Culture exhibits no growth. 04/18/24 21:39 Mucosa - Nose SARS-CoV-2, Influenza & RSV (PCR) - Final SARS-CoV-2 (COVID 19 PCR) D/C Instructions Discharge Diet: 1800 Calorie Control Diet Weight Bearing Status: Full weight bearing DC O2, CPAP, BIPAP Needs Home O2 Discharge instructions: No Meaningful Use Info Meaningful Use Meaningful Use Diagnoses (Choose all that apply): None applicable Ischemic Stroke Statin Dosing Therapy Reference: STATIN DOSE THERAPY REFERENCE: * Patients > 75 years receive moderate or high dose statin therapy. * Patients 75 years or YOUNGER should receive HIGH intensity statin dose unless contraindicated. You will be required to document reason for non-treatment if statin daily dose does not meet guidelines. HIGH DOSE STATIN THERAPY DAILY Atorvastatin > than or = to 40 mg Rosuvastatin > than or = to 20 mg Amlodipine + Atorvastatin > than or = to 2.5/40 mg Ezetimibe + Simvastatin 10/80 mg Simvastatin 80mg Discharge Plan Admission Admit Date/Time: 04/19/24 00:42 Primary Reason for Your Visit: Sepsis, pyelonephritis, acute kidney injury Attending Provider: Bret Jackson Primary Care Provider: Anisa Evans [facility] Consulting Providers: Richard Johnson Instructions Additional Instructions / Restrictions: A prescription for ReliOn and insulin has been sent into [facility] along with insulin syringes Discharge Orders/Prescriptions Prescriptions: New cephalexin 500 mg capsule 500 mg PO TID Qty: 21 0RF Continued gabapentin 600 mg tablet 600 mg PO 4X/DAY amitriptyline 10 mg tablet 10 mg PO QHS rosuvastatin 20 mg tablet 20 mg PO QHS Discontinued metformin 1,000 mg tablet 1,000 mg PO BID 90 Days Qty: 180 0RF Referrals / Follow Up: Esau Norwood MD [Med Staff - Courtesy Staff] - 04/24/24 (as previously scheduled by pt) Anisa Evans, NURSING STAFF DEVELOPMENT COORDINATOR-C [Primary Care Provider] - 04/25/24 10:00 am (As previously scheduled. This appt is @ [facility] ) Disposition Disposition (needs filled in before D/C Order can be placed): Home, Self Care Charges/Coding Visit Charges Inpatient E&M: 32357 Disch Hosp >30min
--- NOTE | 2024-04-21 12:15 | CCN.REFER ---
CCN HOME VISIT SCHEDULED FOR 04/29/24 @ 11:30AM. CONFIRMED W/ DTR NELSON @ [phone].
== END 2024-04-20 15:20 | disposition home or self-care (01) | DRG 871 ==
LOC: ED 22:26 → ICU 04-19 01:32 → PCU 04-19 14:52
PROVIDERS: Admitting Provider Internal Medicine; Emergency Provider Emergency Medicine; Visit Provider Internal Medicine
DX: A41.9 Sepsis, unspecified organism (principal); U07.1 COVID-19; R65.21 Severe sepsis with septic shock; E87.1 Hypo-osmolality and hyponatremia; N17.9 Acute kidney failure, unspecified; N10 Acute pyelonephritis; E87.5 Hyperkalemia; E11.40 Type 2 diabetes mellitus with diabetic neuropathy, unspecified; I10 Essential (primary) hypertension; Z68.33 Body mass index [BMI] 33.0-33.9, adult; E11.65 Type 2 diabetes mellitus with hyperglycemia; E53.8 Deficiency of other specified B group vitamins; E78.5 Hyperlipidemia, unspecified; F17.210 Nicotine dependence, cigarettes, uncomplicated; E66.9 Obesity, unspecified; Z79.84 Long term (current) use of oral hypoglycemic drugs; Z79.899 Other long term (current) drug therapy
CPT/HCPCS: 36415; 36600; 70450; 71045; 72125; 73130; 74176; 80053; 81001; 82009; 82550; 82803; 82962; 83605; 84443; 84484; 85025; 85610; 85730; 87040; 87086; 87631; 93005; 94640; 94762; 99285; P9612; A4216; J3420

== ENCOUNTER 2024-04-24 01:16 | Emergency (ER) | payer SELFPAY ==
[2024-04-24] VITALS (13 sets, daily range): BP systolic 131–184; BP diastolic 69–106; PULSE 69–97; RESP 19–35; TEMP 36.3–37; O2SAT 95–97; BMI 35.0
--- NOTE | 2024-04-24 02:16 | EKG12_ITS ---
Test Reason : HTN Blood Pressure : */* mmHG Vent. Rate : 76 BPM Atrial Rate : 76 BPM P-R Int : 178 ms QRS Dur : 100 ms QT Int : 376 ms P-R-T Axes : 62 64 61 degrees QTcB Int : 423 ms Normal sinus rhythm Normal ECG Confirmed by KELLY CASTELLANOS, GISEL ([id number]), newspaper editor PHILLIP MIMS ([id number]) on 04/25/2024 6:27:26 AM Referred By: DONAVON Confirmed By: GISEL MENDOZA MD
--- NOTE | 2024-04-24 02:16 | RAD_ITS ---
INDICATION: HYPERTENSION EXAMINATION/TECHNIQUE: X-RAY - XR Chest 2 Views COMPARISON: Prior study dated: 04/04/2024 FINDINGS: LINES/DEVICES: None. LUNGS: No consolidation. No pneumothorax. MEDIASTINUM: Unremarkable. CARDIAC SILHOUETTE: Not enlarged. BONES AND SOFT TISSUES: No acute abnormalities. RAD/Chest PA and Lateral IMPRESSION: No evidence of active intrathoracic disease. Electronically Signed: Lori Sullivan MD at 3:03 EST ,
--- NOTE | 2024-04-24 02:39 | EX.ED.DYSGE1 ---
HPI History of Present Illness Chief Complaint: Hypertension Narrative Narrative: Chief complaint and HPI: Hypertension. 63-year-old female with past medical history of DM2 presents for evaluation of hypertension. Patient states she has a previous history of hypertension but after losing weight was taken off medication. She was just recently admitted to the hospital for sepsis secondary to pyelonephritis and VINNIE. She was discharged home on antibiotics which she is currently still taking. Patient states she checks her blood pressure every morning when she takes her medication. She states her blood pressure was elevated. She states that it got as high as the 200s earlier today which is why she presents for evaluation. Patient endorses mild bilateral lower extremity edema since her hospital stay. She denies any symptoms from the hypertension such as headache, blurry vision, lightheadedness, chest pain, shortness of breath, nausea, vomiting. Review of systems: See HPI Medications: As listed on the chart Allergies: As listed on the chart PFSH: Per chart Vital signs: As listed on the chart. Reviewed. Physical exam: Gen: A&O x3, NAD Head: Normocephalic, atraumatic Eyes: No sclera icterus, conjunctiva clear ENT: Moist mucous membranes Neck: Trachea midline, No JVD CV: RRR, no murmurs, mild bilateral nonpitting peripheral edema Resp: Lungs CTA BL, no w/r/c GI: Abd soft, non-distended, non-tender, no r/r/g Musc: Full ROM, no deformity Skin: Warm, dry Neuro: Alert, oriented, grossly intact, sensation intact Psych: Cooperative, appropriate mood and [facility] Hyperlipemia HTN (hypertension) Diabetes type 2, controlled Home Medications ?Medication ?Instructions ?Recorded ?Last Taken ?Type amitriptyline 10 mg tablet 10 mg PO QHS depression 04/04/24 Unknown History gabapentin 600 mg tablet 600 mg PO 4X/DAY neuropathy 04/04/24 Unknown History rosuvastatin 20 mg tablet 20 mg PO QHS cholesterol 04/04/24 Unknown History cephalexin 500 mg capsule 500 mg PO TID #21 caps 04/20/24 Unknown Rx insulin NPH isoph U-100 human 100 15 unit subcut BID 04/24/24 Unknown History unit/mL subcutaneous suspension (Novolin N NPH U-100 Insulin isophane) insulin syringe-needle U-100 1 mL 04/24/24 Unknown History 31 gauge x 5/16 Allergy/AdvReac Type Severity Reaction Status Date / Time acetaminophen (From Percocet) AdvReac Vomiting Verified 04/24/24 01:21 oxycodone (From Percocet) AdvReac Vomiting Verified 04/24/24 01:21 Penicillins AdvReac Other Verified 04/24/24 01:21 Social History Smoking Status: Current some day smoker tobacco type: cigarettes EXAM Physical Exam Const Vital Signs: 04/24/24 01:17 04/24/24 01:33 04/24/24 01:37 Temperature 98.6 F Temperature Source Oral Pulse Rate 97 83 Respiratory Rate 20 H 26 H Respiratory Effort Normal Non-Labored Respiratory Pattern Normal Blood Pressure 184/83 H Blood Pressure Mean 116 Pulse Ox 96 96 Oxygen Delivery Method Room Air 04/24/24 01:45 04/24/24 02:00 04/24/24 02:15 Temperature Temperature Source Pulse Rate 83 79 81 Respiratory Rate 20 H 21 H 24 H Respiratory Effort Respiratory Pattern Blood Pressure 131/106 H 139/71 H 152/91 H Blood Pressure Mean 113 92 109 Pulse Ox 96 95 97 Oxygen Delivery Method 04/24/24 03:50 Temperature 97.4 F L Temperature Source Pulse Rate 69 Respiratory Rate 22 H Respiratory Effort Respiratory Pattern Blood Pressure 151/83 H Blood Pressure Mean 105 Pulse Ox 96 Oxygen Delivery Method MDM MDM MDM Narrative Medical decision making narrative: 63-year-old female with past medical history of DM2 presents for evaluation of hypertension. Patient states she has a history of hypertension in the past but is no longer on medication. On presentation patient's blood pressure 184/83. On my assessment blood pressure 152/91. Patient is currently asymptomatic from her hypertension. However she does endorse mild bilateral peripheral edema. Given patient's recent extensive hospital stay we will get cardiac workup. Differential diagnosis includes but is not limited to essential hypertension, pneumonia, electrolyte abnormality, ACS, CHF. CBC without any leukocytosis or anemia. BMP shows mild renal insufficiency. Patient is hyperglycemic at 447. Will give 10 units of insulin. She takes 15 units twice daily on chart review. Troponin unremarkable. Patient not having chest pain therefore I do not think delta is needed. BNP unremarkable. On reevaluation, patient is still asymptomatic. Her blood pressure is very remained in the 150s. Patient states this is the first time she has had hypertension. She states she is not regularly hypertensive therefore will not start her on any medication at this time. She is educated to continue to monitor her blood pressure periodically at home. Continue to monitor her sugars. Follow-up with her primary care physician. She confirmed understanding the plan. EKG: Interpreted by me/EM physician: EKG shows normal sinus rhythm without any acute ischemic changes. heart rate 76 Diagnostic: Interpreted by me/EM physician: Chest x-ray without pneumonia, effusion, cardiomegaly, pneumothorax Impression: 1. Hypertension, to be confirmed 2. Hyperglycemia with known DM2 Lab Data Labs: Laboratory Results - last 24 hr 04/24/24 01:28 WBC 4.7 RBC 4.23 Hgb 12.2 Hct 37.5 MCV 88.7 MCH 28.8 MCHC 32.5 RDW Std Deviation 40.9 RDW Coeff of Rkisti 12.6 Plt Count 230 MPV 10.8 Neut % (Auto) Not Reportable Absolute Neuts (auto) 2.4 Absolute Lymphs (auto) 1.08 Total Counted 100 Neutrophils % (Manual) 52 Band Neutrophils % 1 Lymphocytes % (Manual) 23 Monocytes % (Manual) 14 H Eosinophils % (Manual) 2 Metamyelocytes % 6 H Myelocytes % 2 H Diff Path Review May foll Platelet Estimate ADEQUATE RBC Morphology N CYTIC Polychromasia RARE Sodium 137 Potassium 4.0 Chloride 103 Carbon Dioxide 26.0 Anion Gap 8 BUN 22 H Creatinine 1.13 H Estim Creat Clear Calc 59.01 Est GFR (MDRD) Af Amer 63 Est GFR (MDRD) Non-Af 52 L BUN/Creatinine Ratio 19.5 Glucose 447 H Calcium 9.1 Troponin I High Sens 5 B-Natriuretic Peptide 52.2 Radiography Diagnostic Testing: Clinical Impression(s) from Imaging Studies Chest X-Ray 04/24/24 02:16 IMPRESSION: No evidence of active intrathoracic disease. Electronically Signed: Lori Sullivan MD at 3:03 EST , Discharge Plan Triage Chief Complaint: Hypertension ED Provider: Ilia Ladd Dx/Rx/DC Orders Clinical Impression: Hypertension Instructions: ED Hypertension, To Be Confirmed Prescriptions: No Action Novolin N NPH U-100 Insulin 100 unit/mL suspension 15 unit subcut BID (DME) insulin syringe-needle U-100 1 mL 31 gauge x 5/16 syringe MISCELLANEOUS UD gabapentin 600 mg tablet 600 mg PO 4X/DAY amitriptyline 10 mg tablet 10 mg PO QHS rosuvastatin 20 mg tablet 20 mg PO QHS Patient Comments: pt ran out of med cephalexin 500 mg capsule 500 mg PO TID Qty: 21 0RF Primary Care Provider: Anisa Evans Referrals: Anisa Evans, DRY WALL APPLICATOR-C [Primary Care Provider] - 3-5 Days Activity Restrictions/Additional Instructions: You received insulin here in the emergency room. Monitor your glucose at home and check it before giving your morning insulin. Call your primary care office in the morning and let them know that you will need to have repeat blood pressure checks and possibly placed on medication. Check your blood pressure at home. Return back to the ED if symptoms change or worsen. Print Language: Malay Disposition Disposition: Home, Self Care
[2024-04-24 02:57] LABS: Hematocrit 37.5 % (37-47); Hemoglobin 12.2 g/dL (12.0-15.0); Mean Corp Hgb Conc 32.5 g/dL (32-36); Mean Corpuscular Hgb 28.8 pg (27.0-32.0); Mean Corpuscular Volume 88.7 fL (81-99); Mean Platelet Vol. 10.8 fl (6.2-12.0); POSITIVE COUNT YES; POSITIVE MORPHOLOGY YES; Platelet Count 230 K/mm3 (150-450); RBC Distribution Width CV 12.6 % (11.6-14.6); RBC Distribution Width SD 40.9 fl (35.1-43.9); Red Blood Count 4.23 M/mm3 (4.2-5.4); White Blood Count 4.7 K/mm3 (4.4-11.0)
[2024-04-24 03:19] LABS: Anion Gap 8 (5-15); BUN 22 mg/dL (7-18); BUN/Creat Ratio 19.5 RATIO (10-20); Calcium,Total 9.1 mg/dL (8.5-10.1); Chloride 103 mmol/L (98-107); Creatinine, Serum 1.13 mg/dL (0.55-1.02); EST Glomerular Filtration Rate 52 mL/min (>60); Est Glom Filt Rate - Afr Amer 63 mL/min (>60); Estimated Creatinine Clearance 59.01 ml/min; Glucose 447 mg/dL (74-106); Sodium Level 137 mmol/L (136-145); Troponin-I HS 5 pg/mL (3.0-54.0)
[2024-04-24 03:22] LABS: Differential Indicated MANUAL DIFF
[2024-04-24 03:43] LABS: Eosinophil 2 % (0-5); Lymphocyte 23 % (19-41); Metamyelocyte 6 % (0-1); Monocyte 14 % (0-10); Myelocyte 2 % (0-0); Neutrophil-Band 1 % (0-5); Neutrophil-Segmented 52 % (47-70); Total Cells Counted 100 (MANUAL DIFF)
[2024-04-24 03:45] LABS: Absolute Lymphocyte Count 1.08 X10^3/uL (0.83-4.51); Absolute Neutrophil Count 2.4 X10^3/uL (2.0-7.7); BNP,B-Type NATRIURETIC PEPTIDE 52.2 pg/mL (0-100); Lymphocyte # 1.08 X10^3/ul (0.83-4.51); Neutrophil # 2.44 X10^3/uL (2.7-7.7); Platelet Estimate ADEQUATE (ADEQ)
[2024-04-24 03:46] LABS: Polychromasia RARE; Red Cell Morphology N CYTIC NORMAL (NORM C&C)
[2024-04-24] MEDS: Insulin Lispro 100 UNIT/ML INSULN.PEN 10 UNIT SC (03:57)
[2024-04-24 13:14] LABS: Pathologist Review Reviewed
== END 2024-04-24 04:02 | disposition home or self-care (01) ==
PROVIDERS: Emergency Provider Surgery; Visit Provider Surgery
DX: I10 Essential (primary) hypertension (principal); E11.65 Type 2 diabetes mellitus with hyperglycemia; Z79.4 Long term (current) use of insulin; R60.0 Localized edema; N28.9 Disorder of kidney and ureter, unspecified; E78.5 Hyperlipidemia, unspecified; Z79.899 Other long term (current) drug therapy; F17.210 Nicotine dependence, cigarettes, uncomplicated
CPT/HCPCS: 71046; 80048; 83880; 84484; 85025; 93005; 99285; A4216

== ENCOUNTER → 2024-05-13 | Outpatient (CLI) | payer SELFPAY ==
[2024-05-13 12:47] LABS: Absolute Lymphocyte Count 1.56 X10^3/uL (0.83-4.51); Absolute Neutrophil Count 2.4 X10^3/uL (2.0-7.7); Basophil# 0.05 X10^3/uL; Basophil% 1.1 % (0-1); Eosinophil# 0.16 X10^3/uL; Eosinophils% 3.5 % (0-5); Hemoglobin 14.2 g/dL (12.0-15.0); Lymphocyte # 1.56 X10^3/ul (0.83-4.51); Lymphocyte % 33.7 % (19-41); Mean Corp Hgb Conc 31.6 g/dL (32-36); Mean Corpuscular Hgb 28.2 pg (27.0-32.0); Mean Corpuscular Volume 89.3 fL (81-99); Mean Platelet Vol. 10.5 fl (6.2-12.0); Monocyte# 0.48 X10^3/uL; Monocyte% 10.4 % (0-10); NRBC Flagged by Analyzer 0 % (0-5); Neutrophil # 2.35 X10^3/uL (2.7-7.7); Neutrophil % 50.7 % (47-70); Platelet Count 221 K/mm3 (150-450); RBC Distribution Width CV 13.3 % (11.6-14.6); RBC Distribution Width SD 43.6 fl (35.1-43.9); Red Blood Count 5.04 M/mm3 (4.2-5.4); White Blood Count 4.6 K/mm3 (4.4-11.0)
[2024-05-13 13:02] LABS: ALB/GLOB Ratio 1.1 RATIO (0.9-2.4); AST(SGOT) 12 U/L (15-37); Alanine Aminotransfer ALT/SGPT 22 U/L (13-56); Albumin, Serum 3.8 g/dL (3.2-5.0); Alkaline Phosphatase 95 U/L (45-117); Anion Gap 7 (5-15); BUN 16 mg/dL (7-18); BUN/Creat Ratio 16.1 RATIO (10-20); Calcium,Total 9.2 mg/dL (8.5-10.1); Chloride 108 mmol/L (98-107); Creatinine, Serum 0.99 mg/dL (0.55-1.02); EST Glomerular Filtration Rate 60 mL/min (>60); Est Glom Filt Rate - Afr Amer 73 mL/min (>60); Globulin 3.5 g/dL (2.2-4.2); Glucose 276 mg/dL (74-106); Potassium 4.6 mmol/L (3.5-5.1); Protein, Total 7.3 g/dL (6.4-8.2); Sodium Level 140 mmol/L (136-145)
== END | disposition home or self-care (01) ==
LOC: VSLAB 09:24
DX: I10 Essential (primary) hypertension (principal)
CPT/HCPCS: 36415; 80053; 85025